=== PATIENT | female | born 1975 | race African-American/Black ===

== ENCOUNTER 2017-06-23 16:20 | Observation (INO) | payer OTHER ==
[~2017-06-23] VITALS: Ht 170.2 cm; Wt 138.0 kg
[~2017-06-23 16:20] MED LIST: ALBU6.7H INH; ASPI-110 PO; ATOR40TA16 PO; CARD120T4 PO; DULA0.5I SQ; FLUT50SP EACH NARE; HYDR50TA3 PO; LEVO.05 PO; LIOT5TAB3 PO; LOSA50TA PO; METO50TA PO; MYCO500T PO; NOVOLOGSS SQ; NUVAMIS VAGINAL; PRAS10TA PO; PRED5PAK PO; TRAZ50TA12 PO; ULOR40TA PO; ZITHTAB PO
[2017-06-23 16:23] VITALS: BP 105/56; PULSE 99; RESP 20; TEMP 97.6; O2SAT 100
[2017-06-23] MEDS ORDERED: SODIUM CHLOR 0.9% 1000 ML INJ 1,000 ML IV SCH (18:26)
[2017-06-23] MEDS ORDERED: MORPHINE SULFATE 4 MG/ML INJ IV PUSH ONE (18:30)
[2017-06-23] MEDS ORDERED: ONDANSETRON HCL 4 MG/2 ML VIAL IVP ONE (18:30)
[2017-06-23] MEDS ORDERED: SODIUM CHLORIDE 0.9% FLUSH 10 ML FLUSH IV FLUSH PRN ×2 (18:30→21:00)
--- NOTE | 2017-06-23 18:32 | PD ---
HPI Chief Complaint: Syncope/Near-Syncope Time Seen by Provider: 18:15 Travel History International Travel<30 days: No Contact w/Intl Traveler<30days: No Traveled to known affect area: No History of Present Illness HPI This is a 41-year-old female with history of lupus, rheumatoid arthritis, hypothyroidism, diabetes, coronary artery disease with previous coronary artery stent placement who presents for evaluation of syncope and abdominal pain. She reports that she had 2 episodes of lightheadedness yesterday. She reports that today after using the bathroom she was washing her hands when she felt lightheaded and she then passed out. She woke up on the ground. She reports that she's been experiencing a sharp lower abdominal pain since then. The pain is constant but worse with movement. She endorses mild nausea and lightheadedness at this time. She denies any headache, chest pain or shortness of breath, fevers or chills, recent illness, recent change in diet. She denies any vaginal bleeding or discharge, dysuria. She reports that her last menstrual period was June 06. She has no other complaints at this time. PFSH Past Medical History Arthritis: Yes (RA, LUPUS) Asthma: No Autoimmune Disease: Yes (RA) Blood Disorders: No Bipolar Disorder: Yes Anxiety: Yes (PTSD R/T CHILDHOOD ABUSE PER PT) Depression: Yes Heart Rhythm Problems: No Cancer: No High Cholesterol: No Chemotherapy: Yes (2002) Chest Pain: Yes Congestive Heart Failure: No COPD: No Cerebrovascular Accident: No Diabetes: Yes (TYPE 2) Diminished Hearing: No Endocrine: Yes Gastrointestinal Disorders: Yes (GASTROPARESIS) GERD: Yes Glaucoma: No Genitourinary: No Headaches: Yes Hepatitis: No Hiatal Hernia: Yes (REPAIR) Hypertension: Yes Immune Disorder: No Inguinal Hernia: No Insomnia: Yes Kidney Stones: No Musculoskeletal: Yes Neurologic: Yes (HX OPTIC NEURITIS LEFT EYE) Psychiatric: Yes Reproductive: No Respiratory: No Immunizations Current: Yes Migraines: No Myocardial Infarction: No Radiation Therapy: No Renal Failure: No Seizures: No Sickle Cell Disease: No Sleep Apnea: No Thyroid Disease: No Ulcer: No LMP: 06/06/17 : 3 Para: 1 Past Surgical History AICD: No Appendectomy: No Arteriovenous Shunt: No Cardiac Surgery: No Cholecystectomy: Yes Ear Surgery: No Endocrine Surgery: No Eye Surgery: Yes (BILATERAL CATARACTS) Genitourinary Surgery: Yes (SUPRAPUBIC CATH. IN AND INSERTION- ; REMOVAL 2006..CYCT ) Gynecologic Surgery: No Hysterectomy: No Insulin Pump: No Joint Replacement: No Oral Surgery: No Pacemaker: No Thoracic Surgery: No Other Surgery: Yes (RESET BROKEN LEG 1995) Social History Alcohol Use: No Tobacco Use: No Substance Use: No Allergies-Medications (Allergen,Severity, Reaction): Coded Allergies: bupropion (Unverified Allergy, Severe, SOB, 05/23/17) latex (Unverified Allergy, Severe, Anaphylaxis, 05/23/17) sulfamethoxazole (Unverified Allergy, Severe, hives, 05/23/17) trimethoprim (Unverified Allergy, Severe, hives, 05/23/17) *MDRO Multi-Drug Resistant Organism (Verified Adverse Reaction, Unknown, ) MRSA (buttocks) - 02/2008; (leg) - 06/2010 Reported Meds & Prescriptions Reported Meds & Active Scripts Active Metoprolol Tartrate 50 Mg Tab 50 Mg PO BID Hydrochlorothiazide 50 Mg Tab 50 Mg PO BID Rx'ed Tissue Rewinder Trazodone (Trazodone HCl) 50 Mg Tab 0.5-1 Tab PO HS PRN Take half tab 30 min before bed. If no sleep take a second half tab. Effient (Prasugrel) 10 Mg Tab 10 Mg PO DAILY Rx'ed by Immigration Coordinator Cardizem (Diltiazem HCl) 120 Mg Tab 120 Mg PO DAILY Rx'ed Tissue Rewinder Atorvastatin (Atorvastatin Calcium) 40 Mg Tab 40 Mg PO HS Reported Zithromax Z-Dylan (Azithromycin) 250 Mg Dspk 250 Mg PO DIRECTED 500 MG (2 tabs) day 1, then 1 tab days 2-5. Proventil Hfa 6.7 GM Inh (Albuterol Sulfate) 90 Mcg/Act Aer 2 Puff INH Q4-6H PRN Prednisone (21) 5 mg tab Dose Pack (Prednisone) 5 Mg Dspk 5 Mg PO DIRECTED Novolog Inj (Insulin Aspart) 100 Unit/Ml Inj 5 SQ DIRECTED surgar over 150 sliding scale. Rx'ed by Endocrinology Trulicity Inj (Dulaglutide Inj) 1.5 Mg/0.5 Ml Pen 1.5 Mg SQ WEEKLY PRN Take on Monday Aspirin 81 (Aspirin) 81 Mg Tabdr 81 Mg PO DAILY Fluticasone Nasal [place] 50 Mcg/Act Naspr 50 Mcg EACH NARE BID 50 mcg/spray Uloric (Febuxostat) 40 Mg Tab 1 Tab PO DAILY Rx'ed by Rheum Liothyronine (Liothyronine Sodium) 5 Mcg Tab 5 Mcg PO DAILY Rx'ed by Endocrinology Losartan (Losartan Potassium) 50 Mg Tab 50 Mg PO BID Rx'ed Tissue Rewinder Mycophenolate (Mycophenolate Mofetil) 500 Mg Tab 1 Mg PO BID Rx'ed by Rheum Nuvaring Vaginal Insert (Etonogestrel-Ethinyl Estradiol Vaginal Insert) 0.120- 0.015 Mg/24 Hr Vagring 1 Applic VAGINAL DIRECTED Synthroid (Levothyroxine Sodium) 50 Mcg Tab 50 Mcg PO DAILY Rx'ed by Endocrinology Review of Systems Except as stated in HPI: all other systems reviewed are Neg Physical Exam Narrative GENERAL: Well-developed well-nourished female in no acute distress sitting upright in hospital bed vital signs reviewed. SKIN: Warm and dry. HEAD: Atraumatic. Normocephalic. EYES: Pupils equal and round. No scleral icterus. No injection or drainage. ENT: No nasal bleeding or discharge. Mucous membranes pink and moist. NECK: Trachea midline. No JVD. CARDIOVASCULAR: Regular rate and rhythm. No murmur appreciated. RESPIRATORY: No accessory muscle use. Clear to auscultation. Breath sounds equal bilaterally. GASTROINTESTINAL: Abdomen soft, tenderness to palpation in the lower quadrants without guarding. No CVA tenderness. MUSCULOSKELETAL: No obvious deformities. No clubbing. No cyanosis. No edema. NEUROLOGICAL: Awake and alert. No obvious cranial nerve deficits. Motor grossly within normal limits. Normal speech. PSYCHIATRIC: Appropriate mood and affect; insight and judgment normal. Data Data Last Documented VS Vital Signs Date Time Temp Pulse Resp B/P (MAP) Pulse Ox O2 Delivery O2 Flow Rate FiO2 06/23/17 18:44 95 16 188/58 (101) 100 06/23/17 16:23 97.6 Orders Orders Electrocardiogram (06/23/17 ) Complete Blood Count With Diff (06/23/17 18:26) Comprehensive Metabolic Panel (06/23/17 18:26) Lipase (06/23/17 18:26) Urinalysis - C+S If Indicated (06/23/17 18:26) Iv Access Insert/Monitor (06/23/17 18:) Ecg Monitoring (06/23/17 18:) Oximetry (06/23/17 18:) Morphine Inj (Morphine Inj) (06/23/17 18:30) Sodium Chlor 0.9% 1000 Ml Inj (Ns 1000 M (06/23/17 18:26) Sodium Chloride 0.9% Flush (Ns Flush) (06/23/17 18:30) Electrocardiogram (06/23/17 18:) Ed Urine Pregnancytest Poc (06/23/17 18:) Magnesium (Mg) (06/23/17 18:) Ckmb (Isoenzyme) Profile (06/23/17:) Troponin I (06/23/17:) Ondansetron Inj (Zofran Inj) (06/23/17 18:30) Orthostatic Vital Signs (06/23/17 18:) Ct Abd/Pel W/O Iv Contrast (06/23/17 18:) Admit Order (Ed Use Only) (06/23/17 20:42) Labs Laboratory Tests Test 06/23/17 18:35 06/23/17 19:29 White Blood Count 14.1 TH/MM3 Red Blood Count 4.36 MIL/MM3 Hemoglobin 11.5 GM/DL Hematocrit 36.2 % Mean Corpuscular Volume 83.1 FL Mean Corpuscular Hemoglobin 26.5 PG Mean Corpuscular Hemoglobin Concent 31.9 % Red Cell Distribution Width 13.9 % Platelet Count 412 TH/MM3 Mean Platelet Volume 7.8 FL Neutrophils (%) (Auto) 67.0 % Lymphocytes (%) (Auto) 24.3 % Monocytes (%) (Auto) 7.2 % Eosinophils (%) (Auto) 1.2 % Basophils (%) (Auto) 0.3 % Neutrophils # (Auto) 9.5 TH/MM3 Lymphocytes # (Auto) 3.4 TH/MM3 Monocytes # (Auto) 1.0 TH/MM3 Eosinophils # (Auto) 0.2 TH/MM3 Basophils # (Auto) 0.0 TH/MM3 CBC Comment DIFF FINAL Differential Comment Blood Urea Nitrogen 47 MG/DL Creatinine 2.47 MG/DL Random Glucose 195 MG/DL Total Protein 7.2 GM/DL Albumin 3.5 GM/DL Calcium Level 9.2 MG/DL Magnesium Level 1.7 MG/DL Alkaline Phosphatase 70 U/L Aspartate Amino Transf (AST/SGOT) 23 U/L Alanine Aminotransferase (ALT/SGPT) 42 U/L Total Bilirubin 0.3 MG/DL Sodium Level 135 MEQ/L Potassium Level 3.7 MEQ/L Chloride Level 100 MEQ/L Carbon Dioxide Level 25.1 MEQ/L Anion Gap 10 MEQ/L Estimat Glomerular Filtration Rate 26 ML/MIN Total Creatine Kinase 82 U/L Troponin I LESS THAN 0.02 NG/ML Lipase 321 U/L Urine Color YELLOW Urine Turbidity HAZY Urine pH 5.0 Urine Specific [place] 1.016 Urine Protein TRACE mg/dL Urine Glucose (UA) NEG mg/dL Urine Ketones NEG mg/dL Urine Occult Blood NEG Urine Nitrite NEG Urine Bilirubin NEG Urine Urobilinogen LESS THAN 2.0 MG/DL Urine Leukocyte Esterase NEG Urine WBC LESS THAN 1 /hpf Urine Squamous Epithelial Cells 16 /hpf Urine Bacteria RARE /hpf Urine Hyaline Casts 10 /lpf Urine Mucus FEW /lpf Microscopic Urinalysis Comment CULT NOT INDICATED MDM Medical Decision Making Medical Screen Exam Complete: Yes Emergency Medical Condition: Yes Medical Record Reviewed: Yes Interpretation(s) EKG reveals normal sinus rhythm, rate 95 Differential Diagnosis Ruptured ovarian cyst, ruptured ectopic , arrhythmia, dehydration, electrolyte abnormality, orthostatic hypotension, vertigo, seizure, gastroenteritis, micturition syncope, vasovagal syncope Narrative Course 41-year-old female with history of lupus, rheumatoid arthritis, hypothyroidism, diabetes, coronary artery disease who presents after having a syncopal episode in the bathroom. She has been experiencing lightheadedness, sharp lower abdominal pain since then. The patient will be placed on ECG monitoring pulse oximetry. A 12-lead EKG was obtained. Plans for basic lab work, CT abdomen and pelvis. She will be given IV fluids, Zofran. Orthostatic vital signs will be obtained. Laboratory and imaging studies have been reviewed. CT reveals a 2.4 cm right ovarian cyst with no free fluid. The appendix appears normal. The CBC count is 14.1. BUN 47, creatinine 2.47 with a GFR of 26 which appears lower than her baseline; she does have some chronic renal insufficiency secondary to her lupus. Upon reexamination the patient's pain is improved, she continues to feel lightheaded especially with movement or when standing. Therefore the plan will be to admit the patient for observation for which the patient is agreeable. Discussed with Dr. Berman who is agreeable with admission. Procedures EKG Prior to Arrival: Yes Diagnosis Primary Impression: Syncope Qualified Codes: R55 - Syncope and collapse Additional Impressions: Abdominal pain Qualified Codes: R10.9 - Unspecified abdominal pain Acute kidney injury Admitting Information Admitting Physician Requests: Observation Alton Higginbotham Jun 23, 2017 18:32
[2017-06-23 18:44] VITALS: BP 188/58; PULSE 95; RESP 16; O2SAT 100
[2017-06-23 19:15] LABS: AUTOMATED NEUTROPHIL # 9.5 TH/MM3 (1.8-7.7); BASOPHIL % 0.3 % (0.0-2.0); EOSINOPHIL # 0.2 TH/MM3 (0-0.4); EOSINOPHIL % 1.2 % (0.0-4.0); HEMATOCRIT 36.2 % (35.0-46.0); HEMO FLAGS DIFF FINAL; LYMPH % 24.3 % (9.0-44.0); LYMPHOCYTE # 3.4 TH/MM3 (1.0-4.8); MEAN CELL VOLUME 83.1 FL (80.0-100.0); MEAN CORPUSCULAR HEMOGLOBIN 26.5 PG (27.0-34.0); MEAN CORPUSCULAR HGB CONC 31.9 % (32.0-36.0); MONO % 7.2 % (0.0-8.0); PLATELET COUNT 412 TH/MM3 (150-450); RED BLOOD COUNT 4.36 MIL/MM3 (4.00-5.30); RED CELL DISTRIBUTION WIDTH 13.9 % (11.6-17.2); WHITE BLOOD COUNT 14.1 TH/MM3 (4.0-11.0)
[2017-06-23 19:35] LABS: ALT (GPT) 42 U/L (10-53); ANION GAP 10 MEQ/L (5-15); AST (GOT) 23 U/L (15-37); BICARBONATE 25.1 MEQ/L (21.0-32.0); BLOOD UREA NITROGEN 47 MG/DL (7-18); CHLORIDE 100 MEQ/L (98-107); GLOMERULAR FILTRATION RATE 26 ML/MIN (>89); MAGNESIUM 1.7 MG/DL (1.5-2.5); POTASSIUM 3.7 MEQ/L (3.5-5.1); SODIUM (NA) 135 MEQ/L (136-145)
[2017-06-23 19:39] LABS: ALKALINE PHOSPHATASE 70 U/L (45-117); TOTAL BILIRUBIN ADULT 0.3 MG/DL (0.2-1.0)
[2017-06-23 19:45] LABS: CREATINE KINASE 82 U/L (26-192)
[2017-06-23 20:00] LABS: BACTERIA, URINE RARE /hpf; BLOOD, URINE NEG (NEG); COMMENT (UR) CULT NOT INDICATED; CULTURE IF INDICATED CULT NOT INDICATED; GLUCOSE,URINE NEG (NEG); HYALINE CAST, URINE 10 /lpf (RARE); KETONE, URINE NEG (NEG); MUCUS URINE FEW /lpf (OCC); NITRITE,URINE NEG (NEG); SQUAMOUS EPITHELIAL CELL URINE 16 /hpf (0-5); URINE COLOR YELLOW (YELLW/STRAW)
--- NOTE | 2017-06-23 20:23 | RADRPT ---
EXAM DATE/TIME: 06/23/2017 20:03 [facility] COMPARISON: No previous studies available for comparison. INDICATIONS : Right lower quadrant abdominal pain. ORAL CONTRAST: No oral contrast ingested. RADIATION DOSE: 22.59 CTDIvol (mGy) ; Patient body habitus MEDICAL HISTORY : Hypertension. Diabetes mellitus type 2. Cardiovascular disease SURGICAL HISTORY : None. ENCOUNTER: Initial ACUITY: 1 day PAIN SCALE: 8/10 LOCATION: abdomen TECHNIQUE: Volumetric scanning of the abdomen and pelvis was performed. Using automated exposure control and ad justment of the mA and/or kV according to patient size, radiation dose was kept as low as reasonably achievable to obtain optimal diagnostic quality images. DICOM format image data is available electro nically for review and comparison. FINDINGS: LOWER LUNGS: The visualized lower lungs are clear. LIVER: Homogeneous density without lesion. There is no dilation of the biliary tree. Previous cholecystecto my. SPLEEN: Normal size without lesion. PANCREAS: Within normal limits. KIDNEYS: Normal in size and shape. There is no mass, stone, or hydronephrosis. ADRENAL GLANDS: Within normal limits. VASCULAR: There is no aortic aneurysm. BOWEL/MESENTERY: The stomach, small bowel, and colon demonstrate no acute abnormality. There is no free intraperitone al air or fluid. Normal appendix. ABDOMINAL WALL: Within normal limits. RETROPERITONEUM: There is no lymphadenopathy. BLADDER: No wall thickening or mass. REPRODUCTIVE: 2.4 cm right ovarian cyst. No free fluid in the pelvic cul-de-sac. INGUINAL: There is no lymphadenopathy or hernia. MUSCULOSKELETAL: No acute bony abnormality demonstrated. CONCLUSION: 1. 2.4 cm right ovarian cyst, in a patient this age most likely physiologic. No free fluid. 2. No other abnormalities are demonstrated. The appendix is normal. There are no obstructive or infla mmatory changes. Reddy Damon MD on June 23, 2017 at 20:18 Board Certified Radiologist. This report was verified electronically.
[2017-06-23 20:53] VITALS: BP_SYST 115; BP_SYST 122; BP_SYST 123; BP_DIAS 57; BP_DIAS 58; BP_DIAS 62; RESP 18
--- NOTE | 2017-06-23 20:55 | HHI.HP ---
[facility] Sonali Shepard MD Admission Diagnosis syncope, abdominal pain, acute kidney injury Diagnoses: (1) Syncope Diagnosis: Principal (2) Abdominal pain Diagnosis: Principal (3) EDWINA (acute kidney injury) Diagnosis: Principal (4) Leukocytosis Diagnosis: Principal (5) Lupus Diagnosis: Principal (6) DM (diabetes mellitus) Diagnosis: Principal Travel History International Travel<30 Days: No Contact w/Intl Traveler <30 Da: No Traveled to Known Affected Are: No History of Present Illness This is a 41-year-old female with a PMH of HTN, Bipolar Disorder, Anxiety, Depression, Lupus, DM, CAD s/p Stent, Gastroparesis and Hypothyroidism who was brought to the ER after syncopal event. Pt states she had lunch w/ her Brother , then stopped at a gas station on her way home, used the restroom and when she was washing her hands had sudden onset of lightheadedness/dizziness followed by syncopal event. Episode unwitnessed. Pt states she woke up on the bathroom floor approx 2min later, no incontinence. No h/o similar symptoms. Denies fever, chills. Follows w/ Dr. Winn as outpatient, recent office visit s/p Stress Test with normal results per patient. On arrival, BP 105/56, HR 99, O2 sat 100% on RA, Afebrile. WBC 14.1. Creatinine 2.47, previously 1.87 on . Troponin negative. Lipase 321. UA negative. CT Abd/Pelvis w/ 2.4cm right ovarian cyst, no other findings. Review of Systems Except as stated in HPI: all other systems reviewed are Neg ROS: 14 point review of systems otherwise negative. Past Family Social History Past Medical History PMH: HTN, Bipolar Disorder, Anxiety, Depression, Lupus, DM, CAD s/p Stent, Gastroparesis and Hypothyroidism Past Surgical History PAST SURGICAL HISTORY: Cholecystectomy, Bilateral Cataract Surgery, Leg Surgery Allergies: Coded Allergies: bupropion (Unverified Allergy, Severe, SOB, 05/23/17) latex (Unverified Allergy, Severe, Anaphylaxis, 05/23/17) sulfamethoxazole (Unverified Allergy, Severe, hives, 05/23/17) trimethoprim (Unverified Allergy, Severe, hives, 05/23/17) *MDRO Multi-Drug Resistant Organism (Verified Adverse Reaction, Unknown, ) MRSA (buttocks) - 02/2008; (leg) - 06/2010 Family History PAST FAMILY HISTORY: Reviewed, positive for DM and CAD. Social History PAST SOCIAL HISTORY: Negative for alcohol, tobacco or drugs. Physical Exam Vital Signs Vital Signs Date Time Temp Pulse Resp B/P (MAP) Pulse Ox O2 Delivery O2 Flow Rate FiO2 06/23/17 18:44 95 16 188/58 (101) 100 06/23/17 16:23 97.6 99 20 105/56 (72) 100 Physical Exam PE: GENERAL: A pleasant young black female in no acute distress. at bedside. HEENT: PERRLA, EOMI. No scleral icterus or conjunctival pallor. No lid lag or facial droop. CARDIOVASCULAR: Regular rate and rhythm. No obvious murmurs to auscultation. No chest tenderness to palpation. RESPIRATORY: No obvious rhonchi or wheezing. Clear to auscultation. Breath sounds equal bilaterally. GASTROINTESTINAL: Abdomen soft, non-tender, nondistended. BS normal. MUSCULOSKELETAL: Extremities without clubbing, cyanosis, or edema. No obvious deformities. NEUROLOGICAL: Awake, alert and oriented x4. No focal neurologic deficits. Moving both upper and lower extremities spontaneously. Laboratory Laboratory Tests Test 06/23/17 18:35 06/23/17 19:29 White Blood Count 14.1 Red Blood Count 4.36 Hemoglobin 11.5 Hematocrit 36.2 Mean Corpuscular Volume 83.1 Mean Corpuscular Hemoglobin 26.5 Mean Corpuscular Hemoglobin Concent 31.9 Red Cell Distribution Width 13.9 Platelet Count 412 Mean Platelet Volume 7.8 Neutrophils (%) (Auto) 67.0 Lymphocytes (%) (Auto) 24.3 Monocytes (%) (Auto) 7.2 Eosinophils (%) (Auto) 1.2 Basophils (%) (Auto) 0.3 Neutrophils # (Auto) 9.5 Lymphocytes # (Auto) 3.4 Monocytes # (Auto) 1.0 Eosinophils # (Auto) 0.2 Basophils # (Auto) 0.0 CBC Comment DIFF FINAL Differential Comment Blood Urea Nitrogen 47 Creatinine 2.47 Random Glucose 195 Total Protein 7.2 Albumin 3.5 Calcium Level 9.2 Magnesium Level 1.7 Alkaline Phosphatase 70 Aspartate Amino Transf (AST/SGOT) 23 Alanine Aminotransferase (ALT/SGPT) 42 Total Bilirubin 0.3 Sodium Level 135 Potassium Level 3.7 Chloride Level 100 Carbon Dioxide Level 25.1 Anion Gap 10 Estimat Glomerular Filtration Rate 26 Total Creatine Kinase 82 Troponin I LESS THAN 0.02 Lipase 321 Urine Color YELLOW Urine Turbidity HAZY Urine pH 5.0 Urine Specific [place] 1.016 Urine Protein TRACE Urine Glucose (UA) NEG Urine Ketones NEG Urine Occult Blood NEG Urine Nitrite NEG Urine Bilirubin NEG Urine Urobilinogen LESS THAN 2.0 Urine Leukocyte Esterase NEG Urine WBC LESS THAN 1 Urine Squamous Epithelial Cells 16 Urine Bacteria RARE Urine Hyaline Casts 10 Urine Mucus FEW Microscopic Urinalysis Comment CULT NOT INDICATED Result Diagram: 06/23/17183406/23/171834 Caprini VTE Risk Assessment Caprini VTE Risk Assessment: No/Low Risk (score <= 1) Caprini Risk Assessment Model Point Value = 1 Point Value = 2 Point Value = 3 Point Value = 5 Age 41-60 Minor surgery BMI > 25 kg/m2 Swollen legs Varicose veins or History of unexplained or recurrent spontaneous Oral contraceptives or hormone replacement Sepsis (< 1 month) Serious lung disease, including pneumonia (< 1 month) Abnormal pulmonary function Acute myocardial infarction Congestive heart failure (< 1 month) History of inflammatory bowel disease Medical patient at bed rest Age 61-74 Arthroscopic surgery Major open surgery (> 45 min) Laparoscopic surgery (> 45 min) Malignancy Confined to bed (> 72 hours) Immobilizing plaster cast Central venous access Age >= 75 History of VTE Family history of VTE Factor V Leiden Prothrombin [id number] Lupus anticoagulant Anticardiolipin antibodies Elevated serum homocysteine Heparin-induced thrombocytopenia Other congenital or acquired thrombophilia Stroke (< 1 month) Elective arthroplasty Hip, pelvis, or leg fracture Acute spinal cord injury (< 1 month) Prophylaxis Regimen Total Risk Factor Score Risk Level Prophylaxis Regimen 0-1 Low Early ambulation 2 Moderate Order ONE of the following: *Sequential Compression Device (SCD) *Heparin 5000 units SQ BID 3-4 Higher Order ONE of the following medications: *Heparin 5000 units SQ TID *Enoxaparin/Lovenox 40 mg SQ daily (WT < 150 kg, CrCl > 30 mL/min) *Enoxaparin/Lovenox 30 mg SQ daily (WT < 150 kg, CrCl > 10-29 mL/min) *Enoxaparin/Lovenox 30 mg SQ BID (WT < 150 kg, CrCl > 30 mL/min) AND/OR *Sequential Compression Device (SCD) 5 or more Highest Order ONE of the following medications: *Heparin 5000 units SQ TID (Preferred with Epidurals) *Enoxaparin/Lovenox 40 mg SQ daily (WT < 150 kg, CrCl > 30 mL/min) *Enoxaparin/Lovenox 30 mg SQ daily (WT < 150 kg, CrCl > 10-29 mL/min) *Enoxaparin/Lovenox 30 mg SQ BID (WT < 150 kg, CrCl > 30 mL/min) AND *Sequential Compression Device (SCD) Assessment and Plan Problem List: (1) Syncope ICD Code: R55 - Syncope and collapse Status: Acute (2) Abdominal pain ICD Code: R10.9 - Unspecified abdominal pain Status: Acute (3) EDWINA (acute kidney injury) ICD Code: N17.9 - Acute kidney failure, unspecified (4) Leukocytosis ICD Code: D72.829 - Elevated white blood cell count, unspecified (5) Lupus ICD Code: L93.0 - Discoid lupus erythematosus (6) DM (diabetes mellitus) ICD Code: E11.9 - Type 2 diabetes mellitus without complications Assessment and Plan A/P: 1. Syncope: acute episode of lightheadedness followed by syncopal event, no h/ o similar episodes. Check Echo, IVF for hydration, monitor on telemetry. 2. Abdominal Pain: unclear etiology, h/o gastroparesis, CT Abd/Pelvis w/ right ovarian cyst, no abnormalities to explain symptoms, images reviewed by me. Analgesics/antiemetics as needed. 3. EDWINA: Acute on Chronic. Creatinine 2.47, previously 1.87 on 07/30/16. UA negative. IVF for hydration, repeat labs in a.m. 4. Leukocytosis: WBC 14.1, no shift, no recent steroid use. Will monitor, repeat labs in am. 5. Lupus: Stable. Resume home Mycophenolate. 6. DM: Sliding scale w/ Accu-Cheks. 7. DVT Prophylaxis: Heparin sq 8. Social work for d/c planning as needed. 9. Case discussed w/ ER physician at length. Problem Qualifiers (1) Syncope: Qualified Codes: R55 - Syncope and collapse (2) Abdominal pain: Qualified Codes: R10.9 - Unspecified abdominal pain Char Berman MD Jun 23, 2017 20:55
--- NOTE | 2017-06-23 20:55 | EKG ---
Date Performed: 06/23/2017 Time Performed: 16:49:20 PTAGE: 41 years EKG: Sinus rhythm NORMAL ECG No significant change from prior electrocardiogram. PREVIOUS TRACING : 07/30/2016 14.05 DOCTOR: Abraham Nolasco Interpretating Date/Time 06/23/2017 20:54:09
[2017-06-23] MEDS ORDERED: ACETAMINOPHEN 325 MG TAB PO PRN (21:00)
[2017-06-23] MEDS ORDERED: MAGNESIUM HYDROXIDE SUSP 30 ML CUP PO PRN (21:00)
[2017-06-23] MEDS: DOCUSATE SODIUM 50 MG/SENNA 8.6 MG TAB PO SCH (21:00)
[2017-06-23] MEDS ORDERED: BISACODYL 10 MG SUPP RECTAL PRN (21:00)
[2017-06-23] MEDS ORDERED: ONDANSETRON HCL 4 MG/2 ML VIAL IVP PRN (21:00)
[2017-06-23] MEDS: SODIUM CHLORIDE 0.9% FLUSH 10 ML FLUSH IV FLUSH SCH (21:00)
[2017-06-23] MEDS ORDERED: SENNOSIDES 8.6 MG TAB PO PRN (21:00)
[2017-06-23] MEDS ORDERED: LACTULOSE SYRUP 20 GM/30 ML CUP PO PRN (21:00)
[2017-06-23] MEDS ORDERED: MORPHINE SULFATE 4 MG/ML INJ IV PUSH PRN (21:00)
[2017-06-23] MEDS ORDERED: ACETAMINOPHEN/HYDROcodone 325 MG/5 MG TAB PO PRN (21:00)
[2017-06-23] MEDS ORDERED: GLUCAGON 1 MG/ML VIAL OTHER PRN (21:15)
[2017-06-23] MEDS ORDERED: DEXTROSE 50% IN WATER 50 ML VIAL(D50) IV PRN (21:15)
[2017-06-23] MEDS: SODIUM CHLOR 0.9% 1000 ML INJ 1,000 ML IV SCH (22:00)
[2017-06-23 22:01] VITALS: BP 119/71; PULSE 94; RESP 18; TEMP 98.2; O2SAT 100
[2017-06-23 23:22] VITALS: PULSE 93
[2017-06-24] VITALS (8 sets, daily range): BP systolic 118–138; BP diastolic 59–95; PULSE 92–100; RESP 16–18; TEMP 97.6–98.7; O2SAT 96–100
[2017-06-24] MEDS: LEVOTHYROXINE SODIUM 50 MCG TAB PO SCH (06:10)
[2017-06-24] MEDS: INSULIN ASPART SUPPLEMENTAL SCALE SQ SCH ×4 (08:00→21:31)
[2017-06-24] MEDS: DILTIAZEM-CD 120 MG CAP ER PO SCH (08:47)
[2017-06-24] MEDS: METOPROLOL TARTRATE 50 MG TAB PO SCH ×2 (08:47→21:30)
[2017-06-24] MEDS: DOCUSATE SODIUM 50 MG/SENNA 8.6 MG TAB PO SCH ×2 (08:48→21:30)
[2017-06-24] MEDS: SODIUM CHLORIDE 0.9% FLUSH 10 ML FLUSH IV FLUSH SCH ×2 (08:48→21:00)
[2017-06-24] MEDS: ASPIRIN EC 81 MG TABEC PO SCH (08:48)
[2017-06-24] MEDS: PRASUGREL 10 MG TAB PO SCH (08:48)
[2017-06-24] MEDS: SODIUM CHLOR 0.9% 1000 ML INJ 1,000 ML IV SCH ×2 (08:49→22:31)
[2017-06-24] MEDS ORDERED: HEPARIN SODIUM - SQ 10,000 UNITS/ML VIAL SQ SCH (09:00)
[2017-06-24] MEDS ORDERED: MYCOPHENOLATE MOFETIL 500 MG TAB PO SCH (09:00)
[2017-06-24 09:42] LABS: AUTOMATED NEUTROPHIL # 10.4 TH/MM3 (1.8-7.7); BASOPHIL # 0.1 TH/MM3 (0-0.2); BASOPHIL % 0.5 % (0.0-2.0); EOSINOPHIL # 0.1 TH/MM3 (0-0.4); EOSINOPHIL % 0.9 % (0.0-4.0); HEMATOCRIT 35.3 % (35.0-46.0); HEMO FLAGS DIFF FINAL; LYMPH % 24.7 % (9.0-44.0); LYMPHOCYTE # 3.8 TH/MM3 (1.0-4.8); MEAN CELL VOLUME 83.6 FL (80.0-100.0); MEAN CORPUSCULAR HEMOGLOBIN 26.2 PG (27.0-34.0); MEAN CORPUSCULAR HGB CONC 31.3 % (32.0-36.0); NEUT % 66.9 % (16.0-70.0); PLATELET COUNT 371 TH/MM3 (150-450); RED BLOOD COUNT 4.22 MIL/MM3 (4.00-5.30); RED CELL DISTRIBUTION WIDTH 13.8 % (11.6-17.2); WHITE BLOOD COUNT 15.5 TH/MM3 (4.0-11.0)
[2017-06-24] MEDS ORDERED: LOSA50TA PO (10:19)
[2017-06-24] MEDS ORDERED: HYDR25TA5 PO (10:20)
--- NOTE | 2017-06-24 10:38 | HHI.PR ---
Subjective Remarks Patient says she is feeling well this morning. She feels like going home. She reports intermittent sharp right lower quadrant pain unchanged today, however tolerable. Denies any chest pain or shortness of breath. She reports decreased appetite over the past several days with right lower quadrant abdominal pain. Denies any diarrhea or constipation. She does report history of sleeve gastrectomy about a year ago, with 150 pound weight loss since that time. She says that she is already gone down her blood pressure medication due to improved blood pressure control. Says that it is low today, seems to have been going much lower recently. She says she works out regularly without any issues. Objective Vital Signs Date Time Temp Pulse Resp B/P (MAP) Pulse Ox O2 Delivery O2 Flow Rate FiO2 06/24/17 07:14 98.6 98 16 132/85 (101) 99 06/24/17 03:27 98.4 95 18 127/76 (93) 97 06/24/17 00:43 98.2 92 18 118/60 (79) 100 06/23/17 23:22 93 06/23/17 22:01 98.2 94 18 119/71 (87) 100 06/23/17 20:53 93 18 123/57 (79) 93 18 115/58 (77) 95 18 122/62 (82) 06/23/17 18:44 95 16 188/58 (101) 100 06/23/17 16:23 97.6 99 20 105/56 (72) 100 I/O 06/23/17 06/23/17 06/23/17 06/24/17 06/24/17 06/24/17 07:00 15:00 23:00 07:00 15:00 23:00 Intake Total 1000 ml Balance 1000 ml Intake IV Total 1000 ml Result Diagram: 06/24/17 0756 06/23/171834 Imaging Last Impressions Abdomen/Pelvis CT 06/23/171825 Signed Impressions: Service Date/Time: Friday, June 23, 2017 20:03 - CONCLUSION: 1. 2.4 cm right ovarian cyst, in a patient this age most likely physiologic. No free fluid. 2. No other abnormalities are demonstrated. The appendix is normal. There are no obstructive or inflammatory changes. Reddy Damon MD Objective Remarks GENERAL: Patient sitting up in bed. Appears comfortable. Alert and oriented 3. SKIN: Warm and dry. HEAD: Normocephalic. EYES: No scleral icterus. No injection or drainage. NECK: Supple, trachea midline. No JVD or lymphadenopathy. CARDIOVASCULAR: Regular rate and rhythm without murmurs, gallops, or rubs. RESPIRATORY: Breath sounds equal bilaterally. No accessory muscle use. GASTROINTESTINAL: Abdomen soft, non-tender, nondistended. MUSCULOSKELETAL: No cyanosis, or edema. BACK: Nontender without obvious deformity. No CVA tenderness. A/P Assessment and Plan //Syncope: acute episode of lightheadedness followed by syncopal event, no h/o similar episodes. Check Echo, IVF for hydration, monitor on telemetry. = 06/24. Likely secondary to excessive blood pressure control in the setting of weight loss. Hold ARB, hydrochlorothiazide. Follow-up echocardiogram, ultrasound carotids ordered today. //Abdominal Pain: unclear etiology, h/o gastroparesis, CT Abd/Pelvis w/ right ovarian cyst, no abnormalities to explain symptoms, images reviewed by me. Analgesics/antiemetics as needed. -Improved slightly. Likely secondary to right ovarian cyst. Expect to improve after ovulation. Patient should have a repeat ultrasound in 2 weeks. Explained to patient, who conveys understanding. /EDWINA: Acute on Chronic. Creatinine 2.47, previously 1.87 on 07/30/16. UA negative. IVF for hydration, repeat labs in a.m. //Leukocytosis: WBC 15.5, no shift, no recent steroid use. No signs of acute infection, however does have right-sided pain. Could be secondary to stress. Will monitor, repeat labs in am. //Lupus: Stable. cont home Mycophenolate. // DM: cont Sliding scale w/ Accu-Cheks. //DVT Prophylaxis: Heparin sq Discharge Planning Discharge tomorrow if labs stable Tae Glass MD Jun 24, 2017 10:38
[2017-06-24 11:31] LABS: ALKALINE PHOSPHATASE 69 U/L (45-117); ALT (GPT) 31 U/L (10-53); ANION GAP 10 MEQ/L (5-15); AST (GOT) 19 U/L (15-37); BICARBONATE 21.1 MEQ/L (21.0-32.0); BLOOD UREA NITROGEN 43 MG/DL (7-18); CHLORIDE 104 MEQ/L (98-107); GLOMERULAR FILTRATION RATE 32 ML/MIN (>89); POTASSIUM 4.1 MEQ/L (3.5-5.1); SODIUM (NA) 135 MEQ/L (136-145); TOTAL BILIRUBIN ADULT 0.3 MG/DL (0.2-1.0)
--- NOTE | 2017-06-24 13:38 | RADRPT ---
EXAM DATE/TIME: 06/24/2017 12:15 [facility] COMPARISON: None. INDICATIONS : Syncope. MEDICAL HISTORY : Hypertension. Rheumatoid arthritis. Diabetes mellitus type 2. Optic neuritis. Gastroparesis. PTSD. Yaa pus. Carcinoma, stomach. SURGICAL HISTORY : Cholecystectomy. Cataracts. Hiatal hernia repair. Vertical abdominal sleeve. ENCOUNTER: Initial ACUITY: 1 day PAIN SCORE: 0/10 LOCATION: Bilateral neck PEAK SYSTOLIC VELOCITIES (cm/sec): ICA/CCA RATIO: Right: 1.0 Left: 0.9 ICA: Right: 97 Left: 94 CCA: Right: 99 Left: 130 ECA: Right: 76 Left: 80 VERTEBRAL: Right: 73 antegrade Left: 72 antegrade Elevated flow velocities and ICA/CCA ratios have been found to correlate with increased degrees of vessel stenosis, calculated as percentage of diameter relative to a normal segment of distal ICA/CCA FINDINGS: RIGHT CAROTID: There is mild plaque at the right carotid bulb region. No significant stenosis is visualized. The wa veforms are within normal limits. LEFT CAROTID: There is mild plaque at the mid left common carotid artery. There is mild elevation of the peak systo lic velocity within the proximal left common carotid artery. Remaining velocities on the left side ar e normal. The waveforms are within normal limits. VERTEBRAL ARTERIES: Antegrade flow is seen in both vertebral arteries. MISCELLANEOUS: None. CONCLUSION: Mild plaque seen bilaterally. A significant stenosis is not visualized. There is mildly elevated peak systolic velocity of the proximal left common artery. A more proximal stenosis cannot be excluded. O ne could further evaluate the carotid systems with a CTA or MRA of the neck. Reddy Merrill MD on June 24, 2017 at 13:31 Board Certified Radiologist. This report was verified electronically.
[2017-06-24] MEDS ORDERED: ATORVASTATIN 40 MG TAB PO SCH (21:00)
[2017-06-24] MEDS: MYCOPHENOLATE MOFETIL 500 MG TAB PO SCH (22:26)
[2017-06-25 03:23] VITALS: BP 129/80; PULSE 90; RESP 18; TEMP 98.1; O2SAT 97
[2017-06-25] MEDS: LEVOTHYROXINE SODIUM 50 MCG TAB PO SCH (05:24)
[2017-06-25 07:20] VITALS: BP 148/74; PULSE 97; RESP 16; TEMP 98.6; O2SAT 96
[2017-06-25 08:30] VITALS: PULSE 98
[2017-06-25] MEDS: INSULIN ASPART SUPPLEMENTAL SCALE SQ SCH ×2 (08:40→13:25)
[2017-06-25] MEDS: ASPIRIN EC 81 MG TABEC PO SCH (08:40)
[2017-06-25] MEDS: SODIUM CHLOR 0.9% 1000 ML INJ 1,000 ML IV SCH ×2 (08:40→12:49)
[2017-06-25] MEDS: DILTIAZEM-CD 120 MG CAP ER PO SCH (08:41)
[2017-06-25] MEDS: DOCUSATE SODIUM 50 MG/SENNA 8.6 MG TAB PO SCH (08:41)
[2017-06-25] MEDS: MYCOPHENOLATE MOFETIL 500 MG TAB PO SCH (08:41)
[2017-06-25] MEDS: PRASUGREL 10 MG TAB PO SCH (08:41)
[2017-06-25] MEDS: METOPROLOL TARTRATE 50 MG TAB PO SCH (08:41)
[2017-06-25] MEDS: SODIUM CHLORIDE 0.9% FLUSH 10 ML FLUSH IV FLUSH SCH (08:42)
[2017-06-25 11:13] VITALS: BP 153/74; PULSE 102; RESP 17; TEMP 98.8; O2SAT 99
[2017-06-25 11:36] LABS: AUTOMATED NEUTROPHIL # 6.8 TH/MM3 (1.8-7.7); BASOPHIL # 0.1 TH/MM3 (0-0.2); BASOPHIL % 0.5 % (0.0-2.0); EOSINOPHIL # 0.2 TH/MM3 (0-0.4); EOSINOPHIL % 1.7 % (0.0-4.0); HEMATOCRIT 31.9 % (35.0-46.0); HEMO FLAGS DIFF FINAL; LYMPH % 21.9 % (9.0-44.0); LYMPHOCYTE # 2.2 TH/MM3 (1.0-4.8); MEAN CELL VOLUME 84.4 FL (80.0-100.0); MEAN CORPUSCULAR HEMOGLOBIN 26.6 PG (27.0-34.0); MEAN CORPUSCULAR HGB CONC 31.5 % (32.0-36.0); MONO % 6.7 % (0.0-8.0); NEUT % 69.2 % (16.0-70.0); PLATELET COUNT 313 TH/MM3 (150-450); RED BLOOD COUNT 3.78 MIL/MM3 (4.00-5.30); RED CELL DISTRIBUTION WIDTH 13.8 % (11.6-17.2); WHITE BLOOD COUNT 9.8 TH/MM3 (4.0-11.0)
[2017-06-25 11:57] LABS: BICARBONATE 21.1 MEQ/L (21.0-32.0); POTASSIUM 3.9 MEQ/L (3.5-5.1)
[2017-06-25] MEDS ORDERED: HYDR25TA5 PO (13:43)
[2017-06-25] MEDS ORDERED: LOSA50TA PO (13:43)
--- NOTE | 2017-06-25 14:07 | HHI.PR ---
Subjective Remarks Patient seen this morning around 10 AM. Says she is feeling all right. Denies any lightheadedness or dizziness. Feels like going home. Objective Vital Signs Date Time Temp Pulse Resp B/P (MAP) Pulse Ox O2 Delivery O2 Flow Rate FiO2 06/25/17 11:13 98.8 102 17 153/74 (100) 99 06/25/17 08:30 98 06/25/17 07:20 98.6 97 16 148/74 (98) 96 06/25/17 03:23 98.1 90 18 129/80 (96) 97 06/24/17 23:11 98.2 96 17 131/63 (85) 96 06/24/17 20:00 97 06/24/17 19:15 98.7 100 18 125/59 (81) 100 06/24/17 16:51 97.7 93 16 138/95 (109) 96 I/O 06/24/17 06/24/17 06/24/17 06/25/17 06/25/17 06/25/17 07:00 15:00 23:00 07:00 15:00 23:00 Intake Total 729 ml 2095 ml 1000 ml Balance 729 ml 2095 ml 1000 ml Intake Oral 1240 ml IV Total 729 ml 855 ml 1000 ml # Voids 3 # Bowel Movements 1 Result Diagram: 06/25/1795406/25/17954 Objective Remarks GENERAL: Patient sitting up in bed. Appears comfortable. Alert and oriented 3. Exam unchanged from yesterday. SKIN: Warm and dry. HEAD: Normocephalic. EYES: No scleral icterus. No injection or drainage. NECK: Supple, trachea midline. No JVD. CARDIOVASCULAR: Regular rate and rhythm without murmurs, gallops, or rubs. RESPIRATORY: Breath sounds equal bilaterally. No accessory muscle use. GASTROINTESTINAL: Abdomen soft, non-tender, nondistended. MUSCULOSKELETAL: No cyanosis, or edema. BACK: Nontender without obvious deformity. No CVA tenderness. A/P Assessment and Plan //Syncope: acute episode of lightheadedness followed by syncopal event, no h/o similar episodes. Check Echo, IVF for hydration, monitor on telemetry. = 06/24. Likely secondary to excessive blood pressure control in the setting of weight loss. Hold ARB, hydrochlorothiazide. Follow-up echocardiogram, ultrasound carotids ordered today. = 06/25. Ultrasound carotid reviewed with possible left carotid stenosis. Discussed with patient. She will follow with primary care. Considered ordering MRA or CT angiogram, however patient is already on treatment with statin, aspirin, and this would not change therapy. We will liberalize blood pressure management. Send home on lower dose of valsartan and hctz. Discussed with patient, who conveys understanding. She will discuss with primary care. //Abdominal Pain: unclear etiology, h/o gastroparesis, CT Abd/Pelvis w/ right ovarian cyst, no abnormalities to explain symptoms, images reviewed by me. Analgesics/antiemetics as needed. -Improved slightly. Likely secondary to right ovarian cyst. Expect to improve after ovulation. Patient should have a repeat ultrasound in 2 weeks. Explained to patient, who conveys understanding. /EDWINA: Acute on Chronic. Creatinine 2.47, previously 1.87 on 07/30/16. UA negative. IVF for hydration, repeat labs in a.m. = 06/25. Creatinine 1.65. Improved. //Leukocytosis: WBC 15.5, no shift, no recent steroid use. No signs of acute infection, however does have right-sided pain. Could be secondary to stress. Will monitor, repeat labs in am. //Lupus: Stable. cont home Mycophenolate. // DM: cont Sliding scale w/ Accu-Cheks. //DVT Prophylaxis: Heparin sq Discharge Planning Discharge home today. Notify patient of possible carotid stenosis. We'll liberalize blood pressure. She will discuss this with primary care rate possible MRA/CT angiogram as outpatient. Tae Glass MD Jun 25, 2017 14:07
--- NOTE | 2017-06-25 14:11 | HHI.DS ---
Discharge Summary Admission Date Jun 23, 2017 at 20:43 Discharge Date: Jun 25, 2017 Admitting Diagnosis syncope, abdominal pain, acute kidney injury (1) Syncope ICD Code: R55 - Syncope and collapse Status: Acute (2) Abdominal pain ICD Code: R10.9 - Unspecified abdominal pain Status: Acute (3) EDWINA (acute kidney injury) ICD Code: N17.9 - Acute kidney failure, unspecified (4) Leukocytosis ICD Code: D72.829 - Elevated white blood cell count, unspecified (5) Lupus ICD Code: L93.0 - Discoid lupus erythematosus (6) DM (diabetes mellitus) ICD Code: E11.9 - Type 2 diabetes mellitus without complications Procedures No invasive procedures performed. Brief History - From Admission This is a 41-year-old female with a PMH of HTN, Bipolar Disorder, Anxiety, Depression, Lupus, DM, CAD s/p Stent, Gastroparesis and Hypothyroidism who was brought to the ER after syncopal event. Pt states she had lunch w/ her Brother , then stopped at a gas station on her way home, used the restroom and when she was washing her hands had sudden onset of lightheadedness/dizziness followed by syncopal event. Episode unwitnessed. Pt states she woke up on the bathroom floor approx 2min later, no incontinence. No h/o similar symptoms. Denies fever, chills. Follows w/ Dr. Winn as outpatient, recent office visit s/p Stress Test with normal results per patient. On arrival, BP 105/56, HR 99, O2 sat 100% on RA, Afebrile. WBC 14.1. Creatinine 2.47, previously 1.87 on . Troponin negative. Lipase 321. UA negative. CT Abd/Pelvis w/ 2.4cm right ovarian cyst, no other findings. CBC/BMP: 06/25/17 0955 06/25/17 0955 Significant Findings Laboratory Tests Test 06/23/17 18:35 06/23/17 19:29 06/24/17 00:20 06/24/17 07:56 White Blood Count 14.1 TH/MM3 (4.0-11.0) 15.5 TH/MM3 (4.0-11.0) Hemoglobin 11.5 GM/DL (11.6-15.3) 11.0 GM/DL (11.6-15.3) Mean Corpuscular Hemoglobin 26.5 PG (27.0-34.0) 26.2 PG (27.0-34.0) Mean Corpuscular Hemoglobin Concent 31.9 % (32.0-36.0) 31.3 % (32.0-36.0) Neutrophils # (Auto) 9.5 TH/MM3 (1.8-7.7) 10.4 TH/MM3 (1.8-7.7) Monocytes # (Auto) 1.0 TH/MM3 (0-0.9) 1.1 TH/MM3 (0-0.9) Blood Urea Nitrogen 47 MG/DL (7-18) Creatinine 2.47 MG/DL (0.50-1.00) Random Glucose 195 MG/DL (74-106) Sodium Level 135 MEQ/L (136-145) Estimat Glomerular Filtration Rate 26 ML/MIN (>89) Troponin I LESS THAN 0.02 NG/ML LESS THAN 0.02 NG/ML Urine Turbidity HAZY (CLEAR) Urine Bacteria RARE /hpf (NONE) Urine Mucus FEW /lpf (OCC) Test 06/24/17 10:34 06/24/17 21:30 06/25/17 09:55 Blood Urea Nitrogen 43 MG/DL (7-18) 30 MG/DL (7-18) Creatinine 2.08 MG/DL (0.50-1.00) 1.65 MG/DL (0.50-1.00) Random Glucose 286 MG/DL (74-106) 290 MG/DL (74-106) Total Protein 6.2 GM/DL (6.4-8.2) Albumin 2.9 GM/DL (3.4-5.0) Calcium Level 8.3 MG/DL (8.5-10.1) 8.2 MG/DL (8.5-10.1) Sodium Level 135 MEQ/L (136-145) 134 MEQ/L (136-145) Estimat Glomerular Filtration Rate 32 ML/MIN (>89) 42 ML/MIN (>89) Troponin I LESS THAN 0.02 NG/ML Red Blood Count 3.78 MIL/MM3 (4.00-5.30) Hemoglobin 10.0 GM/DL (11.6-15.3) Hematocrit 31.9 % (35.0-46.0) Mean Corpuscular Hemoglobin 26.6 PG (27.0-34.0) Mean Corpuscular Hemoglobin Concent 31.5 % (32.0-36.0) Imaging Last Impressions Carotid Artery Ultrasound 06/24/17 0000 Signed Impressions: Service Date/Time: Saturday, June 24, 2017 12:15 - CONCLUSION: Mild plaque seen bilaterally. A significant stenosis is not visualized. There is mildly elevated peak systolic velocity of the proximal left common artery. A more proximal stenosis cannot be excluded. One could further evaluate the carotid systems with a CTA or MRA of the neck. Reddy Merrill MD Abdomen/Pelvis CT 06/23/17 1826 Signed Impressions: Service Date/Time: Friday, June 23, 2017 20:03 - CONCLUSION: 1. 2.4 cm right ovarian cyst, in a patient this age most likely physiologic. No free fluid. 2. No other abnormalities are demonstrated. The appendix is normal. There are no obstructive or inflammatory changes. Reddy Damon MD Hospital Course //Syncope: acute episode of lightheadedness followed by syncopal event, no h/o similar episodes. Check Echo, IVF for hydration, monitor on telemetry. = 06/24. Likely secondary to excessive blood pressure control in the setting of weight loss. Hold ARB, hydrochlorothiazide. Follow-up echocardiogram, ultrasound carotids ordered today. = 06/25. Ultrasound carotid reviewed with possible left carotid stenosis. Discussed with patient. She will follow with primary care. Considered ordering MRA or CT angiogram, however patient is already on treatment with statin, aspirin, and this would not change therapy. We will liberalize blood pressure management. Send home on lower dose of valsartan and hctz. Discussed with patient, who conveys understanding. She will discuss with primary care. //Abdominal Pain: unclear etiology, h/o gastroparesis, CT Abd/Pelvis w/ right ovarian cyst, no abnormalities to explain symptoms, images reviewed by me. Analgesics/antiemetics as needed. -Improved slightly. Likely secondary to right ovarian cyst. Expect to improve after ovulation. Patient should have a repeat ultrasound in 2 weeks. Explained to patient, who conveys understanding. /EDWINA: Acute on Chronic. Creatinine 2.47, previously 1.87 on 07/30/16. UA negative. IVF for hydration, repeat labs in a.m. = 06/25. Creatinine 1.65. Improved. //Leukocytosis: WBC 15.5, no shift, no recent steroid use. No signs of acute infection, however does have right-sided pain. Could be secondary to stress. Will monitor, repeat labs in am. //Lupus: Stable. cont home Mycophenolate. // DM: cont Sliding scale w/ Accu-Cheks. //DVT Prophylaxis: Heparin sq Discharge Planning Discharge home today. Notify patient of possible carotid stenosis. We'll liberalize blood pressure. She will discuss this with primary care rate possible MRA/CT angiogram as outpatient. Pt Condition on Discharge: Good Discharge Disposition: Discharge Home Discharge Time: > 30 minutes Discharge Instructions DIET: Follow Instructions for: Diabetic Diet Activities you can perform: Regular-No Restrictions Activities to Avoid: Driving for 24 hrs Follow up Referrals: Nephrology - 1 Week Neurology - 1 Week PCP Follow-up - 1 Week New Medications: Hydrochlorothiazide (Hydrochlorothiazide) 25 Mg Tab 25 MG PO DAILY for Blood Pressure Management, #30 TAB Changed Medications: Losartan (Losartan) 50 Mg Tab 25 MG PO DAILY for Blood Pressure Management, #30 TAB 0 Refills (Changed from: DAILY NEB) Rx'ed [employer] Continued Medications: Albuterol 6.7 GM Inh (Proventil Hfa 6.7 GM Inh) 90 Mcg/Act Aer 2 PUFF INH Q4-6H PRN for SHORTNESS OF BREATH, #1 INHALER [address] (Aspirin 81) 81 Mg Tabdr 81 MG PO DAILY, #365 TAB 0 Refills Atorvastatin (Atorvastatin) 40 Mg Tab 40 MG PO HS for Cholesterol Management, #90 TAB 0 Refills Diltiazem (Cardizem) 120 Mg Tab 120 MG PO DAILY for Blood Pressure Management, #180 TAB 1 Refill Rx'ed [employer] Dulaglutide Inj (Trulicity Inj) 1.5 Mg/0.5 Ml Pen 1.5 MG SQ WEEKLY PRN for Blood Sugar Management, #4 PEN 0 Refills Take on Monday Febuxostat (Uloric) 40 Mg Tab 1 TAB PO DAILY Rx'ed by Rheum Fluticasone Nasal [place] (Fluticasone Nasal [place]) 50 Mcg/Act Naspr 50 MCG EACH NARE BID for Allergy Management, #1 BOTTLE 0 Refills 50 mcg/spray Insulin Aspart Inj (Novolog Inj) 100 Unit/Ml Inj 5 SQ DIRECTED surgar over 150 sliding scale. Rx'ed by Endocrinology Levothyroxine (Synthroid) 50 Mcg Tab 50 MCG PO DAILY for Thyroid, #30 TAB 0 Refills Rx'ed by Endocrinology Metoprolol Tartrate (Metoprolol Tartrate) 50 Mg Tab 50 MG PO BID, #60 TAB 1 Refill Mycophenolate (Mycophenolate) 500 Mg Tab 1 MG PO BID for Immunosuppression, #120 TAB 0 Refills Rx'ed by Rheum Prasugrel (Effient) 10 Mg Tab 10 MG PO DAILY for Blood Clot Prevention, #90 TAB 0 Refills Rx'ed by [employer] Lead Trazodone (Trazodone) 50 Mg Tab 0.5-1 TAB PO HS PRN for SLEEP, #90 TAB 1 Refill Take half tab 30 min before bed. If no sleep take a second half tab. Discontinued Medications: Hydrochlorothiazide (Hydrochlorothiazide) 50 Mg Tab 50 MG PO BID for Blood Pressure Management, #180 TAB 0 Refills Rx'ed [employer] Tae Glass MD Jun 25, 2017 14:11
--- NOTE | 2017-06-25 15:32 | ECHRPT ---
Indication: CARDIOMYOPATHY CONCLUSIONS There was limited left ventricular wall motion assessment due to poor endocardial visualization. Normal left ventricular size. Wall thickness is normal. The left ventricular systolic function is normal with an estimated ejection fraction in the range of 55-60%. Doppler parameters are consistent with impaired left ventricular relaxtion (grade 1 diastolic dysfun ction). The right atrium is not well visualized. The interatrial septum not well visualized. Mild thickening of the mitral valve leaflets. No mitral valve stenosis. No mitral valve regurgitation. The aortic valve is not well visualized. Aortic valve sclerosis is present. The tricuspid valve is not well visualized. The pulmonary valve is not well visualized. The inferior vena cava was not well visualized. BP: 132 / 85 HR: Rhythm: Sinus MEASUREMENTS (Male / Female) Normal Values Technical Quality:Technically difficult study 2D ECHO LV Diastolic Diameter PLAX 4.9 cm 4.2 - 5.9 / 3.9 - 5.3 cm LV Systolic Diameter PLAX 3.7 cm IVS Diastolic Thickness 0.9 cm 0.6 - 1.0 / 0.6 - 0.9 cm LVPW Diastolic Thickness 0.9 cm 0.6 - 1.0 / 0.6 - 0.9 cm LV Relative Wall Thickness 0.4 LVOT Diameter 2.4 cm Aortic Root Diameter 2.7 cm LA Systolic Diameter LX 1.9 cm 3.0 - 4.0 / 2.7 - 3.8 cm M-MODE AV Cusp Separation MM 1.8 cm DOPPLER AV Peak Velocity 159.0 cm/s AV Peak Gradient 10.1 mmHg AV Mean Gradient 5.0 mmHg AV Velocity Time Integral 25.8 cm LVOT Peak Velocity 82.0 cm/s LVOT Peak Gradient 2.7 mmHg LVOT Velocity Time Integral 10.1 cm AV Area Cont Eq vti 1.8 cm AV Area Cont Eq pk 2.3 cm Mitral E Point Velocity 66.1 cm/s Mitral A Point Velocity 87.4 cm/s Mitral E to A Ratio 0.8 LV E' Lateral Velocity 5.6 cm/s Mitral E to LV E' Lateral Ratio 11.7 LV E' Septal Velocity 6.9 cm/s Mitral E to LV E' Septal Ratio 9.6 TR Peak Velocity 216.0 cm/s TR Peak Gradient 18.7 mmHg PV Peak Velocity 85.0 cm/s PV Peak Gradient 2.9 mmHg FINDINGS LEFT VENTRICLE There was limited left ventricular wall motion assessment due to poor endocardial visualization. Normal left ventricular size. Wall thickness is normal. The left ventricular systolic function is normal with an estimated ejection fraction in the range of 55-60%. Doppler parameters are consistent with impaired left ventricular relaxtion (grade 1 diastolic dysfun ction). RIGHT VENTRICLE Normal right ventricular size and systolic function. LEFT ATRIUM The left atrial size is normal. RIGHT ATRIUM The right atrium is not well visualized. ATRIAL SEPTUM The interatrial septum not well visualized. AORTA The aortic root and proximal ascending aorta are normal in size on limited imaging. MITRAL VALVE Mild thickening of the mitral valve leaflets. No mitral valve stenosis. No mitral valve regurgitation. AORTIC VALVE The aortic valve is not well visualized. Aortic valve sclerosis is present. No aortic valve stenosis or regurgitation. TRICUSPID VALVE The tricuspid valve is not well visualized. PULMONARY VALVE The pulmonary valve is not well visualized. VESSELS The inferior vena cava was not well visualized. PERICARDIUM No pericardial effusion. Abraham Nolasco MD (Electronically Signed) Final Date:25 June 2017 15:31
[2017-07-17] MEDS ORDERED: LOSA50TA PO (10:36)
[2017-07-17] MEDS ORDERED: METO25TA6 PO (10:36)
[2017-07-17] MEDS ORDERED: MYCO500T PO (10:36)
[2017-07-17] MEDS ORDERED: LIOT5TAB3 PO (10:37)
[2017-07-24] MEDS ORDERED: TRAZ50TA12 PO (12:40)
[2017-07-24] MEDS ORDERED: HYDR25TA5 PO (23:49)
== END 2017-06-25 14:46 | disposition home or self-care (01) ==
LOC: NEPC 16:20 → NEDA 20:43 → NEPFCDU 21:58
PROVIDERS: ADMIT Internal Medicine; ATTEND Internal Medicine
DX: R55 Syncope and collapse (principal); R10.9 Unspecified abdominal pain; N17.9 Acute kidney failure, unspecified; D72.829 Elevated white blood cell count, unspecified; I25.10 Atherosclerotic heart disease of native coronary artery without angina pectoris; I10 Essential (primary) hypertension; L93.0 Discoid lupus erythematosus; E11.9 Type 2 diabetes mellitus without complications; N83.201 Unspecified ovarian cyst, right side; E03.9 Hypothyroidism, unspecified; F31.9 Bipolar disorder, unspecified; Z95.5 Presence of coronary angioplasty implant and graft; Z98.84 Bariatric surgery status; Z79.84 Long term (current) use of oral hypoglycemic drugs
CPT/HCPCS: 74176; 80048; 80053; 80307; 81001; 82550; 82948; 83690; 83735; 84484; 84703; 85025; 93005; 93306; 93880; 96361; 96372; 96374; 96375; 96376; 97161; 99285; G0378; G8987; G8988; J1815; J2270; J2405; J7030; J7517

== ENCOUNTER 2017-09-11 13:25 | Emergency (ER) | payer OTHER ==
[~2017-09-11 13:25] MED LIST changes: -ALBU6.7H INH; -ASPI-110 PO; +ASPI1TAB57 PO; -FLUT50SP EACH NARE; +HYDR25TA5 PO; -HYDR50TA3 PO; -NUVAMIS VAGINAL; -PRED5PAK PO; -ULOR40TA PO; -ZITHTAB PO
[2017-09-11] MEDS ORDERED: IODIXANOL 320 MG/ML 10 ML VIAL (for Rad CT) IVCONTRAST ONE (13:26)
[2017-09-11] MEDS ORDERED: methylPREDNISolone SOD SUCC 125 MG/2 ML VIAL IV PUSH ONE (13:45)
[2017-09-11] MEDS ORDERED: SODIUM CHLORIDE 0.9% FLUSH 10 ML FLUSH IVF PRN (13:45)
[2017-09-11] MEDS: RESP: ALBUTEROL 2.5 MG/3 ML NEB (SCH) INH ×2 (14:00→14:01)
--- NOTE | 2017-09-11 14:24 | PD ---
HPI Chief Complaint: Respiratory Symptoms Time Seen by Provider: 13:41 Travel History International Travel<30 days: No Contact w/Intl Traveler<30days: No Traveled to known affect area: No History of Present Illness HPI 42-year-old female reports 3 days of increasing cough and shortness of breath and intermittent chest tightness. Cough is productive. She reports that azithromycin and prednisone was not helpful. She reports the onset occurred shortly after return from a run. additional complaints include orthopnea prevented the patient from sleeping well and she reports consequently no sleep for the past 3 days. Additional complaints include nausea and vomiting. Pt does not smoke. Subjective fever reported. Pt has lupus and takes Cellcept. PFSH Past Medical History Hx Anticoagulant Therapy: Yes (EFFIENT/ASA) Arthritis: Yes (RA, LUPUS) Asthma: No Autoimmune Disease: Yes (RA) Blood Disorders: No Bipolar Disorder: Yes Anxiety: Yes (PTSD R/T CHILDHOOD ABUSE PER PT) Depression: Yes Heart Rhythm Problems: No Cancer: Yes (STOMACH 2006) Cardiovascular Problems: Yes (MA, HTN) High Cholesterol: No Chemotherapy: Yes Chest Pain: Yes Congestive Heart Failure: No COPD: No Cerebrovascular Accident: No Diabetes: Yes Diminished Hearing: No Endocrine: Yes Gastrointestinal Disorders: Yes (GASTROPARESIS) GERD: Yes Glaucoma: No Genitourinary: No Headaches: Yes Hepatitis: No Hiatal Hernia: Yes (REPAIR) Hypertension: Yes Immune Disorder: No Inguinal Hernia: No Insomnia: Yes Kidney Stones: No Musculoskeletal: Yes 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 IN AND INSERTION; REMOVAL 2006..CYCT ) Gynecologic Surgery: No Hysterectomy: No Insulin Pump: No Joint Replacement: No Oral Surgery: No Pacemaker: No Thoracic Surgery: No Other Surgery: Yes (RESET BROKEN LEG 1995) Social History Alcohol Use: No Tobacco Use: No Substance Use: No Allergies-Medications (Allergen,Severity, Reaction): Coded Allergies: bupropion (Unverified Allergy, Severe, SOB, 07/17/17) latex (Unverified Allergy, Severe, Anaphylaxis, 07/17/17) sulfamethoxazole (Unverified Allergy, Severe, hives, 07/17/17) trimethoprim (Unverified Allergy, Severe, hives, 07/17/17) Reported Meds & Prescriptions Reported Meds & Active Scripts Active Tessalon Perles (Benzonatate) 100 Mg Cap 100 Mg PO TID PRN Proventil Hfa 6.7 GM Inh (Albuterol Sulfate) 90 Mcg/Act Aer 2 Puff INH Q6H PRN Metoprolol Tartrate 50 Mg Tab 50 Mg PO BID Hydrochlorothiazide 25 Mg Tab 25 Mg PO DAILY Trazodone (Trazodone HCl) 50 Mg Tab 0.5-1 Tab PO HS PRN Take half tab 30 min before bed. If no sleep take a second half tab. Effient (Prasugrel) 10 Mg Tab 10 Mg PO DAILY Rx'ed by [employer] Cardizem (Diltiazem HCl) 120 Mg Tab 120 Mg PO DAILY Rx'ed [employer] Atorvastatin (Atorvastatin Calcium) 40 Mg Tab 40 Mg PO HS Reported Prednisone 10 Mg Tab 10 Mg PO DAILY Amoxicillin 500 Mg Tab 500 Mg PO BID Liothyronine (Liothyronine Sodium) 5 Mcg Tab 5 Mcg PO DAILY Mycophenolate (Mycophenolate Mofetil) 500 Mg Tab 1,000 Mg PO TID Losartan (Losartan Potassium) 50 Mg Tab 50 Mg PO BID Novolog Inj (Insulin Aspart) 100 Unit/Ml Inj 5 SQ DIRECTED surgar over 150 sliding scale. Rx'ed by Endocrinology Trulicity Inj (Dulaglutide Inj) 1.5 Mg/0.5 Ml Pen 1.5 Mg SQ WEEKLY PRN Take on Monday Aspirin 81 (Aspirin) 81 Mg Tabdr 81 Mg PO DAILY Synthroid (Levothyroxine Sodium) 50 Mcg Tab 50 Mcg PO DAILY Rx'ed by Endocrinology Review of Systems Except as stated in HPI: all other systems reviewed are Neg General / Constitutional: Positive: Fever (subjective) Physical Exam Narrative GENERAL: 42 yo F speaking sentences SKIN: Warm and dry. HEAD: Atraumatic. Normocephalic. EYES: Pupils equal and round. No scleral icterus. No injection or drainage. ENT: No nasal bleeding or discharge. Mucous membranes pink and moist. NECK: Trachea midline. No JVD. CARDIOVASCULAR: Regular rate and rhythm. RESPIRATORY: No accessory muscle use. Clear to auscultation. Breath sounds equal bilaterally. GASTROINTESTINAL: Abdomen soft, non-tender, nondistended. Hepatic and splenic margins not palpable. MUSCULOSKELETAL: Extremities without clubbing, cyanosis, or edema. No obvious deformities. NEUROLOGICAL: Awake and alert. No obvious cranial nerve deficits. Motor grossly within normal limits. Five out of 5 muscle strength in the arms and legs. Normal speech. PSYCHIATRIC: Appropriate mood and affect; insight and judgment normal. Data Data Last Documented VS Vital Signs Date Time Temp Pulse Resp B/P (MAP) Pulse Ox O2 Delivery O2 Flow Rate FiO2 09/11/17 19:22 09/11/17 17:36 116 17 98 09/11/17 15:10 Room Air Orders Orders Complete Blood Count With Diff (09/11/17 13:41) Basic Metabolic Panel (Bmp) (09/11/17 13:41) B-Type Natriuretic Peptide (09/11/17 13:41) Act Partial Throm Time (Ptt) (09/11/17 13:41) Prothrombin Time / Inr (Pt) (09/11/17 13:41) Ckmb (Isoenzyme) Profile (09/11/17 13:41) Troponin I (09/11/17 13:41) Iv Access Insert/Monitor (09/11/17 13:41) Electrocardiogram (09/11/17 13:41) Ecg Monitoring (09/11/17 13:41) Oximetry (09/11/17 13:41) Oxygen Administration (09/11/17 13:41) Chest, Single Ap (09/11/17 13:41) Ct Pulmonary Angiogram (09/11/17 13:41) Sodium Chloride 0.9% Flush (Ns Flush) (09/11/17 13:45) Methylprednisolone So Succ Inj (Solumedr (09/11/17 13:45) Albuterol Neb (Albuterol Neb) (09/11/17 13:45) CKMB (09/11/17 14:10) CKMB% (09/11/17 14:10) Vascular Access Team Consult/P PRN (09/11/17 15:28) Vascular Poc Ultrasound (09/11/17 ) Iodixanol 320 Inj (Rad Ct) (Visipaque 32 (09/11/17 13:26) Ed Discharge Order (09/11/17 19:04) Labs Laboratory Tests Test 09/11/17 14:10 09/11/17 19:00 White Blood Count 7.8 TH/MM3 Red Blood Count 3.93 MIL/MM3 Hemoglobin 10.7 GM/DL Hematocrit 32.2 % Mean Corpuscular Volume 81.8 FL Mean Corpuscular Hemoglobin 27.1 PG Mean Corpuscular Hemoglobin Concent 33.2 % Red Cell Distribution Width 13.1 % Platelet Count 318 TH/MM3 Mean Platelet Volume 7.7 FL Neutrophils (%) (Auto) 66.2 % Lymphocytes (%) (Auto) 20.2 % Monocytes (%) (Auto) 11.6 % Eosinophils (%) (Auto) 1.4 % Basophils (%) (Auto) 0.6 % Neutrophils # (Auto) 5.2 TH/MM3 Lymphocytes # (Auto) 1.6 TH/MM3 Monocytes # (Auto) 0.9 TH/MM3 Eosinophils # (Auto) 0.1 TH/MM3 Basophils # (Auto) 0.0 TH/MM3 CBC Comment DIFF FINAL Differential Comment Blood Urea Nitrogen 23 MG/DL Creatinine 1.67 MG/DL Random Glucose 240 MG/DL Calcium Level 8.1 MG/DL Sodium Level 135 MEQ/L Potassium Level 4.2 MEQ/L Chloride Level 104 MEQ/L Carbon Dioxide Level 22.9 MEQ/L Anion Gap 8 MEQ/L Estimat Glomerular Filtration Rate 41 ML/MIN Total Creatine Kinase 160 U/L Creatine Kinase MB 1.0 NG/ML Troponin I LESS THAN 0.02 NG/ML B-Type Natriuretic Peptide 6 PG/ML Prothrombin Time 10.0 SEC Prothromb Time International Ratio 1.0 RATIO Activated Partial Thromboplast Time 24.9 SEC MDM Medical Decision Making Medical Screen Exam Complete: Yes Emergency Medical Condition: Yes Differential Diagnosis EDWINA, CHF, pna, anemia Narrative Course CBC & BMP Diagram 09/11/17 14:10 Calcium Level 8.1 L Tn < 0.02 BNP < 100 Last Impressions Chest X-Ray 09/11/171 Signed Impressions: Service Date/Time: Monday, September 11, 2017 13:49 - CONCLUSION: 1. No acute cardiopulmonary disease. Zan Guadalupe MD CT Angiography 09/11/17 1341 Signed Impressions: Service Date/Time: Monday, September 11, 2017 17:15 - CONCLUSION: 1. No evidence of pulmonary embolism. 2. Minimal bibasilar atelectasis posteriorly. Tae Colón MD Pt reports marked improvement here Albuterol scripts Tessalon ozzyles Pt ready for discharge Return precautions discussed Pt ready for discharge Diagnosis Primary Impression: Cough Additional Impression: Dyspnea Qualified Codes: R06.00 - Dyspnea, unspecified Referrals: Primary Care Physician 2 days Med/Other Pt SpecificInfo: Prescription(s) given Scripts Benzonatate (Tessalon Perles) 100 Mg Cap 100 MG PO TID Y for COUGH, #20 CAP 0 Refills Prov: Edgar Ngo MD 09/11/17 Albuterol 6.7 GM Inh (Proventil Hfa 6.7 GM Inh) 90 Mcg/Act Aer 2 PUFF INH Q6H Y for SHORTNESS OF BREATH, #1 INHALER 0 Refills Prov: Edgar Ngo MD 09/11/17 Disposition: 01 DISCHARGE HOME Condition: Stable Edgar Ngo MD Sep 11, 2017 14:24
[2017-09-11 14:32] LABS: AUTOMATED NEUTROPHIL # 5.2 TH/MM3 (1.8-7.7); BASOPHIL % 0.6 % (0.0-2.0); EOSINOPHIL # 0.1 TH/MM3 (0-0.4); EOSINOPHIL % 1.4 % (0.0-4.0); HEMATOCRIT 32.2 % (35.0-46.0); HEMO FLAGS DIFF FINAL; LYMPH % 20.2 % (9.0-44.0); LYMPHOCYTE # 1.6 TH/MM3 (1.0-4.8); MEAN CELL VOLUME 81.8 FL (80.0-100.0); MEAN CORPUSCULAR HEMOGLOBIN 27.1 PG (27.0-34.0); MEAN CORPUSCULAR HGB CONC 33.2 % (32.0-36.0); MONO % 11.6 % (0.0-8.0); NEUT % 66.2 % (16.0-70.0); PLATELET COUNT 318 TH/MM3 (150-450); RED BLOOD COUNT 3.93 MIL/MM3 (4.00-5.30); RED CELL DISTRIBUTION WIDTH 13.1 % (11.6-17.2); WHITE BLOOD COUNT 7.8 TH/MM3 (4.0-11.0)
[2017-09-11 15:02] LABS: ANION GAP 8 MEQ/L (5-15); BICARBONATE 22.9 MEQ/L (21.0-32.0); BLOOD UREA NITROGEN 23 MG/DL (7-18); CHLORIDE 104 MEQ/L (98-107); CREATINE KINASE 160 U/L (26-192); GLOMERULAR FILTRATION RATE 41 ML/MIN (>89); SODIUM (NA) 135 MEQ/L (136-145)
[2017-09-11 15:03] LABS: POTASSIUM 4.2 MEQ/L (3.5-5.1)
--- NOTE | 2017-09-11 15:10 | RADRPT ---
EXAM DATE/TIME: 09/11/2017 13:49 [facility] COMPARISON: No previous studies available for comparison. INDICATIONS : Cough, chest pain and shortness of breath. MEDICAL HISTORY : Hypertension. Myocardial infarction. Asthma. SURGICAL HISTORY : Stents. ENCOUNTER: Initial ACUITY: 1 week PAIN SCORE: 8/10 LOCATION: Bilateral chest FINDINGS: A single view of the chest demonstrates the lungs to be symmetrically aerated without evidence of mas s, infiltrate or effusion. The cardiomediastinal contours are unremarkable. Osseous structures are intact. CONCLUSION: 1. No acute cardiopulmonary disease. Zan Guadalupe MD on September 11, 2017 at 14:29 Board Certified Radiologist. This report was verified electronically.
[2017-09-11] MEDS ORDERED: AMOX500T PO (15:23)
[2017-09-11] MEDS ORDERED: PRED10 PO (15:23)
[2017-09-11 16:30] VITALS: BP 172/85; PULSE 114; RESP 17; O2SAT 98
[2017-09-11 17:36] VITALS: BP 187/92; PULSE 116; RESP 17; O2SAT 98
--- NOTE | 2017-09-11 18:17 | RADRPT ---
EXAM DATE/TIME: 09/11/2017 17:15 [facility] COMPARISON: No previous studies available for comparison. INDICATIONS : Worsening shortness of breath IV CONTRAST: 50 cc Visipaque (iodixanol) IV RADIATION DOSE: 23.00 CTDIvol (mGy) MEDICAL HISTORY : Cardiovascular disease. Renal failure, chronic. Hypertension. Stomach cancer diabetes SURGICAL HISTORY : None. ENCOUNTER: Initial ACUITY: 1 day PAIN SCALE: 7/10 LOCATION: chest TECHNIQUE: Volumetric scanning of the chest was performed using a pulmonary embolism protocol MIP images were re constructed. Using automated exposure control and adjustment of the mA and/or kV according to patien t size, radiation dose was kept as low as reasonably achievable to obtain optimal diagnostic quality images. DICOM format image data is available electronically for review and comparison. Follow-up recommendations for detected pulmonary nodules are based at a minimum on nodule size and pa tient risk factors according to Fleischner Society Guidelines. FINDINGS: PULMONARY ARTERIES: No filling defects are seen in the pulmonary arteries through the segmental level. LUNGS: There is no consolidation or pneumothorax . No concerning pulmonary nodule is visualized. Minimal bi basilar atelectasis posteriorly is noted. PLEURAE: There is no pleural thickening or pleural effusion. MEDIASTINUM: There is good visualization of the great vessels of the middle mediastinum. No evidence of mediastin al or hilar adenopathy/mass. MUSCULOSKELETAL: Within normal limits for patient age. MISCELLANEOUS: The visualized upper abdominal organs demonstrate no acute abnormality. CONCLUSION: 1. No evidence of pulmonary embolism. 2. Minimal bibasilar atelectasis posteriorly. Tae Colón MD on September 11, 2017 at 18:04 Board Certified Radiologist. This report was verified electronically.
[2017-09-11] MEDS ORDERED: ALBU6.7H INH (19:04)
[2017-09-11] MEDS ORDERED: BENZ100 PO (19:08)
[2017-09-11 20:06] LABS: APTT (PATIENT) 24.9 SEC (24.3-30.1)
--- NOTE | 2017-09-12 17:49 | EKG ---
Date Performed: 09/11/2017 Time Performed: 16:11:29 PTAGE: 42 years EKG: ECTOPIC ATRIAL TACHYCARDIA POSSIBLE LEFT ATRIAL ENLARGEMENT MARKED RIGHT AXIS DEVIATION In location or in light of the axis change, there has been limb lead Reversal. The precordial leads are unchanged. ABNORMAL ECG PREVIOUS TRACING : 06/23/2017 16.49 DOCTOR: Josee Mcdermott Interpretating Date/Time 09/12/2017 17:48:41
--- NOTE | 2017-09-12 17:54 | EKG ---
Date Performed: 09/11/2017 Time Performed: 16:41:42 PTAGE: 42 years EKG: SINUS TACHYCARDIA When compared to previous tracing, P wave vector is now normal, And the a xis shift is no longer evident. I suspect the previous tracing suggests an ectopic rhythm Secondary t o limb lead reversal, but clinical corrolation would be Important. The present tracing is now returne d to previous baseline. ABNORMAL RHYTHM ECG PREVIOUS TRACING : 09/11/2017 16.11 DOCTOR: Josee Mcdermott Interpretating Date/Time 09/12/2017 17:53:08
== END 2017-09-11 19:33 | disposition home or self-care (01) ==
LOC: NEPE 13:25
DX: R05 Cough (principal); R06.00 Dyspnea, unspecified; J98.11 Atelectasis; R07.89 Other chest pain; R11.2 Nausea with vomiting, unspecified; R50.9 Fever, unspecified; M32.9 Systemic lupus erythematosus, unspecified; I47.1 Supraventricular tachycardia; R94.31 Abnormal electrocardiogram [ECG] [EKG]
CPT/HCPCS: 71010; 71275; 76937; 80048; 82550; 82552; 83880; 84484; 85025; 85610; 85730; 93005; 94640; 94664; 96374; 99285; J2930; J7613; Q9967

== ENCOUNTER 2018-01-12 20:56 | Emergency (ER) | payer OTHER ==
[~2018-01-12] VITALS: Ht 170.2 cm; Wt 126.0 kg
[~2018-01-12 20:56] MED LIST changes: +ALBU6.7H INH; +ASPI-516 PO; -ASPI1TAB57 PO; +ATOR80TA45 PO; +NOVOLOGP2 SQ; -NOVOLOGSS SQ; +XEROMIS; +[UNRECOGNIZED DRUG - CODE] PO
[2018-01-12 21:11] VITALS: BP 100/56; PULSE 102; RESP 16; TEMP 98.6; O2SAT 98
--- NOTE | 2018-01-12 21:42 | PD ---
HPI Chief Complaint: Syncope/Near-Syncope Time Seen by Provider: 21:42 Travel History International Travel<30 days: No Contact w/Intl Traveler<30days: No Traveled to known affect area: No History of Present Illness HPI 42-year-old female came to the emergency room with history of vomiting and diarrhea since yesterday. Patient says she has had numerous episodes of these. No known sick contacts. She has been lightheaded and today when she was at [employer] running some errands and doing grocery she got intensely lightheaded and passed out. Currently she says she feels weak and woozy. Vital signs in triage had some tachycardia. Patient has never had a syncopal episode in the past. She does have history of diabetes and hypertension. Also has history of rheumatoid arthritis. Currently patient is just complaining of weakness generalized and says she has not urinated in a long time. She feels dehydrated. Patient denies of any pain anywhere. Bedside glucose was checked which was 73. PFSH Past Medical History Narrative Medical List of her past medical, surgical, social and family history is reviewed from the nursing note. Hx Anticoagulant Therapy: Yes (EFFIENT/ASA) Arthritis: Yes (RA, LUPUS) Asthma: No Autoimmune Disease: Yes (RA) Blood Disorders: No Bipolar Disorder: Yes Anxiety: Yes Depression: Yes Heart Rhythm Problems: No Cancer: Yes (2004) Cardiovascular Problems: Yes High Cholesterol: Yes Chemotherapy: Yes Chest Pain: Yes Congestive Heart Failure: No COPD: No Cerebrovascular Accident: No Diabetes: Yes Patient Takes Glucophage: No Diminished Hearing: No Endocrine: Yes Gastrointestinal Disorders: Yes (GASTROPARESIS) GERD: Yes Glaucoma: No Genitourinary: No Headaches: Yes Hepatitis: No Hiatal Hernia: Yes (REPAIR) Hypertension: Yes Immune Disorder: No Inguinal Hernia: No Insomnia: Yes Kidney Stones: No Medical other: Yes (GASTROPARESIS) Musculoskeletal: Yes 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 IN AND INSERTION; REMOVAL 2006..CYCT ) Gynecologic Surgery: No Hysterectomy: No Insulin Pump: No Joint Replacement: No Oral Surgery: No Pacemaker: No Thoracic Surgery: No Other Surgery: Yes (RESET BROKEN LEG 1995) Social History Alcohol Use: No Tobacco Use: No Substance Use: No Allergies-Medications (Allergen,Severity, Reaction): Coded Allergies: bupropion (Unverified Allergy, Severe, SOB, 01/12/18) latex (Unverified Allergy, Severe, Anaphylaxis, 01/12/18) sulfamethoxazole (Unverified Allergy, Severe, hives, 01/12/18) trimethoprim (Unverified Allergy, Severe, hives, 01/12/18) Sulfa (Sulfonamide Antibiotics) (Verified Allergy, Unknown, 01/12/18) Comments List of her allergies reviewed from the nursing note Reported Meds & Prescriptions Reported Meds & Active Scripts Active Zofran Odt (Ondansetron Odt) 4 Mg Tab 4 Mg SL Q8HR PRN Cardizem (Diltiazem HCl) 120 Mg Tab 120 Mg PO DAILY Xeroform Petrol 5"X9" Dressing (Bismuth Tribromoph/Petrolatum) 5" X 9" Bandage Box Proventil Hfa 6.7 GM Inh (Albuterol Sulfate) 90 Mcg/Act Aer 2 Puff INH Q6H PRN Metoprolol Tartrate 50 Mg Tab 50 Mg PO BID Hydrochlorothiazide 25 Mg Tab 25 Mg PO DAILY Trazodone (Trazodone HCl) 50 Mg Tab 0.5-1 Tab PO HS PRN Take half tab 30 min before bed. If no sleep take a second half tab. Atorvastatin (Atorvastatin Calcium) 40 Mg Tab 40 Mg PO HS Reported Novolog Inj (Insulin Aspart) 1,000 Unit/10 Ml Vial 0 SQ DIRECTED Sliding Scale as directed. Qsymia (Phentermine-Topiramate) 3.75-23 mg Cap 1 Tab PO DAILY Effient (Prasugrel) 10 Mg Tab 10 Mg PO DAILY Synthroid (Levothyroxine Sodium) 50 Mcg Tab 50 Mcg PO DAILY Aspirin 81 Mg Chew 81 Mg PO DAILY Atorvastatin (Atorvastatin Calcium) 80 Mg Tab 80 Mg PO HS Losartan (Losartan Potassium) 50 Mg Tab 50 Mg PO BID Liothyronine (Liothyronine Sodium) 5 Mcg Tab 5 Mcg PO DAILY Mycophenolate (Mycophenolate Mofetil) 500 Mg Tab 1,000 Mg PO TID Trulicity Inj (Dulaglutide Inj) 1.5 Mg/0.5 Ml Pen 1.5 Mg SQ WEEKLY PRN Take on Monday Narrative Medication List of her home medications reviewed from the nursing note. Review of Systems Except as stated in HPI: all other systems reviewed are Neg Gastrointestinal: Positive: Nausea, Vomiting, Diarrhea Neurologic: Positive: Syncope Physical Exam Narrative GENERAL: Awake, alert, morbidly obese, moderate distress SKIN: Focused skin assessment warm/dry. HEAD: Atraumatic. Normocephalic. EYES: Pupils equal and round. No scleral icterus. No injection or drainage. ENT: No nasal bleeding or discharge. Dry mucous member NECK: Trachea midline. No JVD. CARDIOVASCULAR: Regular rate and rhythm. No murmur appreciated. RESPIRATORY: No accessory muscle use. Clear to auscultation. Breath sounds equal bilaterally. GASTROINTESTINAL: Abdomen soft, non-tender, nondistended. Hepatic and splenic margins not palpable. MUSCULOSKELETAL: No obvious deformities. No clubbing. No cyanosis. No edema. NEUROLOGICAL: Awake and alert. No obvious cranial nerve deficits. Motor grossly within normal limits. Normal speech. PSYCHIATRIC: Appropriate mood and affect; insight and judgment normal. Data Data Last Documented VS Vital Signs Date Time Temp Pulse Resp B/P (MAP) Pulse Ox O2 Delivery O2 Flow Rate FiO2 01/13/18 03:16 01/13/18 02:00 82 19 99 Room Air 01/12/18 21:11 98.6 Orders Orders Complete Blood Count With Diff (01/12/18 22:49) Comprehensive Metabolic Panel (01/12/18 22:49) Sodium Chlor 0.9% 1000 Ml Inj (Ns 1000 M (01/12/18 23:00) Ed Urine Pregnancytest Poc (01/12/18 22:49) Sodium Chlor 0.9% 1000 Ml Inj (Ns 1000 M (01/13/18 00:00) Potassium Chloride (Kcl) (01/13/18 00:00) Metoclopramide Inj (Reglan Inj) (01/13/18 01:15) Acetaminophen (Tylenol) (01/13/18 01:15) Ed Discharge Order (01/13/18 02:32) Electrocardiogram (01/12/18 21:26) Labs Laboratory Tests Test 01/12/18 23:00 White Blood Count 8.0 TH/MM3 Red Blood Count 4.47 MIL/MM3 Hemoglobin 12.0 GM/DL Hematocrit 35.8 % Mean Corpuscular Volume 79.9 FL Mean Corpuscular Hemoglobin 26.9 PG Mean Corpuscular Hemoglobin Concent 33.6 % Red Cell Distribution Width 13.7 % Platelet Count 371 TH/MM3 Mean Platelet Volume 8.4 FL Neutrophils (%) (Auto) 54.6 % Lymphocytes (%) (Auto) 34.3 % Monocytes (%) (Auto) 7.7 % Eosinophils (%) (Auto) 2.5 % Basophils (%) (Auto) 0.9 % Neutrophils # (Auto) 4.4 TH/MM3 Lymphocytes # (Auto) 2.8 TH/MM3 Monocytes # (Auto) 0.6 TH/MM3 Eosinophils # (Auto) 0.2 TH/MM3 Basophils # (Auto) 0.1 TH/MM3 CBC Comment DIFF FINAL Differential Comment Blood Urea Nitrogen 29 MG/DL Creatinine 2.55 MG/DL Random Glucose 91 MG/DL Total Protein 8.6 GM/DL Albumin 3.9 GM/DL Calcium Level 9.1 MG/DL Alkaline Phosphatase 64 U/L Aspartate Amino Transf (AST/SGOT) 32 U/L Alanine Aminotransferase (ALT/SGPT) 38 U/L Total Bilirubin 0.3 MG/DL Sodium Level 138 MEQ/L Potassium Level 3.4 MEQ/L Chloride Level 106 MEQ/L Carbon Dioxide Level 21.6 MEQ/L Anion Gap 10 MEQ/L Estimat Glomerular Filtration Rate 25 ML/MIN [facility] Medical Decision Making Medical Screen Exam Complete: Yes Emergency Medical Condition: Yes Medical Record Reviewed: Yes Differential Diagnosis Dehydration, electrolyte abnormality, orthostatic hypertension Narrative Course 12:45 AM blood test results are back and patient is in renal failure. She does have history of renal insufficiency but the BUN and creatinine is worse than her usual. Orthostatic vital signs were positive. Sitting blood pressure was 140/58 and heart rate of 95. Standing blood pressure was 112/55 and heart rate of 104. Patient did feel lightheaded upon standing. I had ordered 2 L of IV fluid bolus. The patient has unfortunately not received any fluid yet since the nurse has been busy with few other patients. Patient will be moved to a higher acuity pod at this point. Awaiting for a UA. Case will be signed over to the next ER physician. Procedures EKG Prior to Arrival: No Scripts Ondansetron Odt (Zofran Odt) 4 Mg Tab 4 MG SL Q8HR Y for Nausea/Vomiting, #20 TAB 0 Refills Prov: Perez Estrada MD 01/13/18 Kadie Cannon MD Jan 12, 2018 21:42
[2018-01-12] MEDS ORDERED: SODIUM CHLOR 0.9% 1000 ML INJ 1,000 ML IV ONE (23:00)
[2018-01-12 23:37] LABS: AUTOMATED NEUTROPHIL # 4.4 TH/MM3 (1.8-7.7); BASOPHIL # 0.1 TH/MM3 (0-0.2); BASOPHIL % 0.9 % (0.0-2.0); EOSINOPHIL # 0.2 TH/MM3 (0-0.4); EOSINOPHIL % 2.5 % (0.0-4.0); HEMATOCRIT 35.8 % (35.0-46.0); LYMPH % 34.3 % (9.0-44.0); LYMPHOCYTE # 2.8 TH/MM3 (1.0-4.8); MEAN CELL VOLUME 79.9 FL (80.0-100.0); MEAN CORPUSCULAR HEMOGLOBIN 26.9 PG (27.0-34.0); MEAN CORPUSCULAR HGB CONC 33.6 % (32.0-36.0); MEAN PLATELET VOLUME 8.4 FL (7.0-11.0); MONO % 7.7 % (0.0-8.0); MONOCYTE # 0.6 TH/MM3 (0-0.9); NEUT % 54.6 % (16.0-70.0); PLATELET COUNT 371 TH/MM3 (150-450); RED BLOOD COUNT 4.47 MIL/MM3 (4.00-5.30); RED CELL DISTRIBUTION WIDTH 13.7 % (11.6-17.2)
[2018-01-12 23:48] LABS: ALBUMIN 3.9 GM/DL (3.4-5.0); ALT (GPT) 38 U/L (10-53); AST (GOT) 32 U/L (15-37); BICARBONATE 21.6 MEQ/L (21.0-32.0); BLOOD UREA NITROGEN 29 MG/DL (7-18); CALCIUM 9.1 MG/DL (8.5-10.1); CHLORIDE 106 MEQ/L (98-107); CREATININE 2.55 MG/DL (0.50-1.00); GLOMERULAR FILTRATION RATE 25 ML/MIN (>89); GLUCOSE,RANDOM 91 MG/DL (74-106); SODIUM (NA) 138 MEQ/L (136-145)
[2018-01-12 23:50] LABS: ALKALINE PHOSPHATASE 64 U/L (45-117); TOTAL BILIRUBIN ADULT 0.3 MG/DL (0.2-1.0); TOTAL PROTEIN 8.6 GM/DL (6.4-8.2)
[2018-01-13] MEDS ORDERED: POTASSIUM CHLORIDE 20 MEQ CONTROLLED RELEASE TAB PO ONE
[2018-01-13] MEDS ORDERED: SODIUM CHLOR 0.9% 1000 ML INJ 1,000 ML IV ONE
[2018-01-13 00:56] VITALS: BP_SYST 112; BP_SYST 140; BP_DIAS 55; BP_DIAS 58; RESP 16
[2018-01-13 01:00] VITALS: BP 103/57; PULSE 88; RESP 22; O2SAT 99
[2018-01-13] MEDS ORDERED: ACETAMINOPHEN 325 MG TAB PO ONE (01:15)
[2018-01-13] MEDS ORDERED: METOCLOPRAMIDE HCL 10 MG/2 ML VIAL IV PUSH ONE (01:15)
[2018-01-13 02:00] VITALS: BP 102/58; PULSE 82; RESP 19; O2SAT 99
[2018-01-13] MEDS ORDERED: ZOFR4TAB3 SL (02:32)
--- NOTE | 2018-01-13 02:32 | PD ---
Data Data Last Documented VS Vital Signs Date Time Temp Pulse Resp B/P (MAP) Pulse Ox O2 Delivery O2 Flow Rate FiO2 01/13/18 00:56 94 16 140/58 (85) 104 16 112/55 (74) 01/12/18 21:11 98.6 98 Room Air Orders Orders Complete Blood Count With Diff (01/12/18 22:49) Comprehensive Metabolic Panel (01/12/18 22:49) Sodium Chlor 0.9% 1000 Ml Inj (Ns 1000 M (01/12/18 23:00) Urinalysis - C+S If Indicated (01/12/18 22:49) Ed Urine Pregnancytest Poc (01/12/18 22:49) Sodium Chlor 0.9% 1000 Ml Inj (Ns 1000 M (01/13/18 00:00) Potassium Chloride (Kcl) (01/13/18 00:00) Metoclopramide Inj (Reglan Inj) (01/13/18 01:15) Acetaminophen (Tylenol) (01/13/18 01:15) Labs Laboratory Tests Test 01/12/18 23:00 White Blood Count 8.0 TH/MM3 Red Blood Count 4.47 MIL/MM3 Hemoglobin 12.0 GM/DL Hematocrit 35.8 % Mean Corpuscular Volume 79.9 FL Mean Corpuscular Hemoglobin 26.9 PG Mean Corpuscular Hemoglobin Concent 33.6 % Red Cell Distribution Width 13.7 % Platelet Count 371 TH/MM3 Mean Platelet Volume 8.4 FL Neutrophils (%) (Auto) 54.6 % Lymphocytes (%) (Auto) 34.3 % Monocytes (%) (Auto) 7.7 % Eosinophils (%) (Auto) 2.5 % Basophils (%) (Auto) 0.9 % Neutrophils # (Auto) 4.4 TH/MM3 Lymphocytes # (Auto) 2.8 TH/MM3 Monocytes # (Auto) 0.6 TH/MM3 Eosinophils # (Auto) 0.2 TH/MM3 Basophils # (Auto) 0.1 TH/MM3 CBC Comment DIFF FINAL Differential Comment Blood Urea Nitrogen 29 MG/DL Creatinine 2.55 MG/DL Random Glucose 91 MG/DL Total Protein 8.6 GM/DL Albumin 3.9 GM/DL Calcium Level 9.1 MG/DL Alkaline Phosphatase 64 U/L Aspartate Amino Transf (AST/SGOT) 32 U/L Alanine Aminotransferase (ALT/SGPT) 38 U/L Total Bilirubin 0.3 MG/DL Sodium Level 138 MEQ/L Potassium Level 3.4 MEQ/L Chloride Level 106 MEQ/L Carbon Dioxide Level 21.6 MEQ/L Anion Gap 10 MEQ/L Estimat Glomerular Filtration Rate 25 ML/MIN MDM Supervised Visit with NA: No Narrative Course The patient was initially evaluated by the previous provider and transferred to my care pending IV hydration, reassessment, and disposition. See her note for further details. Briefly this is a 42-year-old female with history of lupus, here for evaluation of gastroenteritis type symptoms since yesterday. Patient also complains of moderate headache as well as feeling as though she may pass out. Labs reviewed and show slight renal insufficiency with a creatinine of 2.55. Patient has baseline renal insufficiency and this is slightly worse than her baseline. Patient was given 2 L normal saline IV and antiemetics as well as Reglan and Tylenol, and on reassessment she states her headache is improved as well as her nausea. She is able to tolerate clear liquids in the emergency department and feels comfortable with being discharged home and following up with her primary care physician as an outpatient. She was advised on when to return to the emergency department patient verbalizes understanding and agreement with plan. Diagnosis Primary Impression: Gastroenteritis Additional Impression: Headache Qualified Codes: R51 - Headache Referrals: Primary Care Physician 3 days Additional Instruction: Follow-up with your primary care physician this week. Stay hydrated with plenty of fluids. Return to the emergency department for worsening symptoms or any other concerns. Scripts Ondansetron Odt (Zofran Odt) 4 Mg Tab 4 MG SL Q8HR Y for Nausea/Vomiting, #20 TAB 0 Refills Prov: Perez Estrada MD 01/13/18 Disposition: 01 DISCHARGE HOME Condition: Stable Perez Estrada MD Jan 13, 2018 02:32
--- NOTE | 2018-01-14 08:12 | EKG ---
Date Performed: 01/12/2018 Time Performed: 21:26:41 PTAGE: 42 years EKG: Sinus rhythm NORMAL ECG PREVIOUS TRACING : 09/11/17 Since the previous tracing, no significant change noted DOCTOR: Rachid Jain Interpretating Date/Time 01/14/2018 08:10:42
== END 2018-01-13 03:37 | disposition home or self-care (01) ==
LOC: NEPD 20:56 → NEPE 01-13 03:37
DX: K52.9 Noninfective gastroenteritis and colitis, unspecified (principal); R51 Headache; M32.9 Systemic lupus erythematosus, unspecified; I12.9 Hypertensive chronic kidney disease with stage 1 through stage 4 chronic kidney disease, or unspecified chronic kidney disease; E11.22 Type 2 diabetes mellitus with diabetic chronic kidney disease; N18.9 Chronic kidney disease, unspecified; M06.9 Rheumatoid arthritis, unspecified; F31.9 Bipolar disorder, unspecified; K21.9 Gastro-esophageal reflux disease without esophagitis
CPT/HCPCS: 80053; 84703; 85025; 93005; 96361; 96374; 99284; J2765; J7030

== ENCOUNTER 2018-03-26 13:56 | Emergency (ER) | payer OTHER ==
[~2018-03-26] VITALS: Ht 170.2 cm; Wt 130.0 kg
[~2018-03-26 13:56] MED LIST changes: +ZOFR4TAB3 SL
[2018-03-26 14:10] VITALS: BP 128/69; PULSE 96; RESP 16; TEMP 98.8; O2SAT 97
[2018-03-26] MEDS ORDERED: METO1TAB42 PO (17:30)
[2018-03-26] MEDS ORDERED: GABA300C5 PO (17:30)
[2018-03-26] MEDS ORDERED: SODIUM CHLOR 0.9% 1000 ML INJ 1,000 ML IV SCH (17:57)
[2018-03-26] MEDS ORDERED: METOCLOPRAMIDE HCL 10 MG/2 ML VIAL IV PUSH ONE (18:00)
[2018-03-26] MEDS ORDERED: SODIUM CHLORIDE 0.9% FLUSH 10 ML FLUSH IV FLUSH PRN (18:00)
[2018-03-26 18:34] VITALS: BP 119/58; PULSE 82; RESP 19; O2SAT 97
[2018-03-26 18:40] LABS: AUTOMATED NEUTROPHIL # 7.3 TH/MM3 (1.8-7.7); BASOPHIL # 0.1 TH/MM3 (0-0.2); BASOPHIL % 0.8 % (0.0-2.0); EOSINOPHIL # 0.1 TH/MM3 (0-0.4); EOSINOPHIL % 0.9 % (0.0-4.0); HEMATOCRIT 30.2 % (35.0-46.0); HEMOGLOBIN 9.9 GM/DL (11.6-15.3); LYMPH % 18.9 % (9.0-44.0); MEAN CELL VOLUME 80.3 FL (80.0-100.0); MEAN CORPUSCULAR HEMOGLOBIN 26.4 PG (27.0-34.0); MEAN CORPUSCULAR HGB CONC 32.9 % (32.0-36.0); MEAN PLATELET VOLUME 7.3 FL (7.0-11.0); MONO % 11.3 % (0.0-8.0); MONOCYTE # 1.2 TH/MM3 (0-0.9); NEUT % 68.1 % (16.0-70.0); PLATELET COUNT 441 TH/MM3 (150-450); RED BLOOD COUNT 3.76 MIL/MM3 (4.00-5.30); WHITE BLOOD COUNT 10.8 TH/MM3 (4.0-11.0)
[2018-03-26 19:04] LABS: ALT (GPT) 25 U/L (10-53)
[2018-03-26 19:06] LABS: ALKALINE PHOSPHATASE 95 U/L (45-117); TOTAL BILIRUBIN ADULT 0.2 MG/DL (0.2-1.0); TOTAL PROTEIN 7.5 GM/DL (6.4-8.2)
[2018-03-26 19:09] LABS: ALBUMIN 3.1 GM/DL (3.4-5.0); AST (GOT) 33 U/L (15-37); BICARBONATE 20.1 MEQ/L (21.0-32.0); BLOOD UREA NITROGEN 26 MG/DL (7-18); CHLORIDE 106 MEQ/L (98-107); CREATININE 2.28 MG/DL (0.50-1.00); GLOMERULAR FILTRATION RATE 29 ML/MIN (>89); GLUCOSE,RANDOM 89 MG/DL (74-106); SODIUM (NA) 136 MEQ/L (136-145)
[2018-03-26] MEDS ORDERED: REGL10TA5 PO (20:23)
[2018-03-26] MEDS ORDERED: LOPE2CAP PO (20:23)
--- NOTE | 2018-03-26 20:23 | PD ---
HPI Chief Complaint: GI Complaint Time Seen by Provider: 17:32 Travel History International Travel<30 days: No Contact w/Intl Traveler<30days: No Traveled to known affect area: No History of Present Illness HPI Is a 42-year-old woman who presents to the emergency department complaining of abdominal pain. She also had nausea vomiting diarrhea over the past 48 hours or so. Some headache itching and rash with it. States she has been a little bit foggy recently. She has history of lupus, RA, and Yamilka's. She also has a history of diabetes. Some chronic kidney disease. She has a history of a gastric sleeve. No definite sick contacts. No unusual foods. No travel. She otherwise had been feeling well. History Past Medical History Narrative Medical Lupus RA Yamilka's Diabetes CAD CKD LMP: 03/12/18 : 3 Para: 1 Social History Alcohol Use: No Tobacco Use: No Allergies-Medications (Allergen,Severity, Reaction): Coded Allergies: bupropion (Unverified Allergy, Severe, SOB, 03/26/18) latex (Unverified Allergy, Severe, Anaphylaxis, 03/26/18) sulfamethoxazole (Unverified Allergy, Severe, hives, 03/26/18) trimethoprim (Unverified Allergy, Severe, hives, 03/26/18) Sulfa (Sulfonamide Antibiotics) (Verified Allergy, Unknown, 03/26/18) Reported Meds & Prescriptions Reported Meds & Active Scripts Active Cardizem (Diltiazem HCl) 120 Mg Tab 120 Mg PO DAILY Proventil Hfa 6.7 GM Inh (Albuterol Sulfate) 90 Mcg/Act Aer 2 Puff INH Q6H PRN Hydrochlorothiazide 25 Mg Tab 25 Mg PO DAILY Reported Gabapentin 300 Mg Cap 300 Mg PO HS Metoprolol Succinate ER 24 HR (Metoprolol Succinate) 25 Mg Tab 25 Mg PO DAILY Novolog Inj (Insulin Aspart) 1,000 Unit/10 Ml Vial 0 SQ DIRECTED Sliding Scale as directed. Qsymia (Phentermine-Topiramate) 3.75-23 mg Cap 1 Tab PO DAILY Synthroid (Levothyroxine Sodium) 50 Mcg Tab 50 Mcg PO DAILY Aspirin 81 Mg Chew 81 Mg PO DAILY Atorvastatin (Atorvastatin Calcium) 80 Mg Tab 80 Mg PO HS Losartan (Losartan Potassium) 50 Mg Tab 50 Mg PO BID Liothyronine (Liothyronine Sodium) 5 Mcg Tab 5 Mcg PO DAILY Trulicity Inj (Dulaglutide Inj) 1.5 Mg/0.5 Ml Pen 1.5 Mg SQ WEEKLY PRN Take on Monday Review of Systems Except as stated in HPI: all other systems reviewed are Neg Physical Exam Narrative GENERAL: Well-appearing 42-year-old woman, no acute distress. SKIN: Focused skin assessment warm/dry. HEAD: Atraumatic. Normocephalic. EYES: Pupils equal and round. No scleral icterus. No injection or drainage. ENT: No nasal bleeding or discharge. Mucous membranes pink and moist. NECK: Trachea midline. No JVD. CARDIOVASCULAR: Regular rate and rhythm. No murmur appreciated. RESPIRATORY: No accessory muscle use. Clear to auscultation. Breath sounds equal bilaterally. GASTROINTESTINAL: Abdomen is obese, soft, mild epigastric tenderness. No rebound or guarding. MUSCULOSKELETAL: No obvious deformities. No clubbing. No cyanosis. No edema. NEUROLOGICAL: Awake and alert. No obvious cranial nerve deficits. Motor grossly within normal limits. Normal speech. PSYCHIATRIC: Appropriate mood and affect; insight and judgment normal. Data Data Last Documented VS Vital Signs Date Time Temp Pulse Resp B/P (MAP) Pulse Ox O2 Delivery O2 Flow Rate FiO2 03/26/18 18:34 82 19 119/58 (78) 97 Room Air 03/26/18 14:10 98.8 Orders Orders Complete Blood Count With Diff (03/26/18 17:57) Comprehensive Metabolic Panel (03/26/18 17:57) Lipase (03/26/18 17:57) Urinalysis - C+S If Indicated (03/26/18 17:57) Iv Access Insert/Monitor (03/26/18 17:57) Sodium Chlor 0.9% 1000 Ml Inj (Ns 1000 M (03/26/18 17:57) Sodium Chloride 0.9% Flush (Ns Flush) (03/26/18 18:00) Metoclopramide Inj (Reglan Inj) (03/26/18 18:00) Ed Discharge Order (03/26/18 20:18) Labs Laboratory Tests Test 03/26/18 18:25 White Blood Count 10.8 TH/MM3 Red Blood Count 3.76 MIL/MM3 Hemoglobin 9.9 GM/DL Hematocrit 30.2 % Mean Corpuscular Volume 80.3 FL Mean Corpuscular Hemoglobin 26.4 PG Mean Corpuscular Hemoglobin Concent 32.9 % Red Cell Distribution Width 14.0 % Platelet Count 441 TH/MM3 Mean Platelet Volume 7.3 FL Neutrophils (%) (Auto) 68.1 % Lymphocytes (%) (Auto) 18.9 % Monocytes (%) (Auto) 11.3 % Eosinophils (%) (Auto) 0.9 % Basophils (%) (Auto) 0.8 % Neutrophils # (Auto) 7.3 TH/MM3 Lymphocytes # (Auto) 2.0 TH/MM3 Monocytes # (Auto) 1.2 TH/MM3 Eosinophils # (Auto) 0.1 TH/MM3 Basophils # (Auto) 0.1 TH/MM3 CBC Comment DIFF FINAL Differential Comment Blood Urea Nitrogen 26 MG/DL Creatinine 2.28 MG/DL Random Glucose 89 MG/DL Total Protein 7.5 GM/DL Albumin 3.1 GM/DL Calcium Level 9.0 MG/DL Alkaline Phosphatase 95 U/L Aspartate Amino Transf (AST/SGOT) 33 U/L Alanine Aminotransferase (ALT/SGPT) 25 U/L Total Bilirubin 0.2 MG/DL Sodium Level 136 MEQ/L Potassium Level 3.9 MEQ/L Chloride Level 106 MEQ/L Carbon Dioxide Level 20.1 MEQ/L Anion Gap 10 MEQ/L Estimat Glomerular Filtration Rate 29 ML/MIN Lipase 292 U/L [facility] Medical Decision Making Medical Screen Exam Complete: Yes Emergency Medical Condition: Yes Interpretation(s) LABS: CBC is remarkable for mild anemia. CMP is remarkable for mildly elevated BUN and creatinine. Lipase is normal. Differential Diagnosis Gastroenteritis, colitis, enteritis, UTI, pancreatitis, other Narrative Course Medical decision making INITIAL: 42-year-old woman presents emerged from nausea vomiting copious watery diarrhea looks well. Mild dehydration. Fluids are very slow going to her IV. She is able to drink now. She is okay with outpatient follow-up. She has some chronic kidney disease at baseline. She will follow-up with her primary physician. Diagnosis Primary Impression: Nausea vomiting and diarrhea Additional Impression: Dehydration Patient Instructions: General Instructions Additional Instructions: Drink plenty fluids stay well-hydrated. Follow-up with your primary physician next 2-3 days. Use Reglan if needed for nausea or vomiting. Take loperamide if needed for diarrhea. Med/Other Pt SpecificInfo: Prescription(s) given Scripts Loperamide (Loperamide) 2 Mg Cap 2 MG PO DIRECTED Y for DIARRHEA, #6 CAP 0 Refills One capsule after each loose stool. Not to exceed 8 capsules per day. Prov: Miguel Acosta MD 03/26/18 Metoclopramide (Reglan) 10 Mg Tab 10 MG PO TIDAC for Nausea/Vomiting, #12 TAB 0 Refills Prov: Miguel Acosta MD 03/26/18 Disposition: 01 DISCHARGE HOME Condition: Stable Miguel Acosta MD Mar 26, 2018 20:23
== END 2018-03-26 20:42 | disposition home or self-care (01) ==
LOC: NEPD 13:56
DX: R11.2 Nausea with vomiting, unspecified (principal); R19.7 Diarrhea, unspecified; E86.0 Dehydration; M32.9 Systemic lupus erythematosus, unspecified; R21 Rash and other nonspecific skin eruption; N18.9 Chronic kidney disease, unspecified; E11.22 Type 2 diabetes mellitus with diabetic chronic kidney disease; E06.3 Autoimmune thyroiditis; I25.10 Atherosclerotic heart disease of native coronary artery without angina pectoris; M06.9 Rheumatoid arthritis, unspecified; Z88.2 Allergy status to sulfonamides
CPT/HCPCS: 80053; 83690; 85025; 96361; 96374; 99284; J2765; J7030